=== PATIENT | male | born 1990 | race Native Hawaiian/Other Pacific Islander ===

== ENCOUNTER 2025-03-26 01:08 | Emergency (ER) | payer BC, SELFPAY ==
--- OUTSIDE RECORDS SUMMARY | 2025-02-14 15:41 | XMS_ITS | Encounter Summary ---
Author Organization [facility] Address [address] [place] [address] Care Team Providers Care Client Business Manager Name Role Phone Elsewhere, Pcp Primary Care Provider Unavailabl e Reason for Visit * Reason Comments Blood in Urine Pt has had two days of blood in urine. The blood has lessoned but he has lower belly and lower back pain. Hx of dm2, states he has been riding in the 400s for a few days. Encounter Details Date Type Department Care Team (Late st Contact Info) Description 02/14/2025 3:41 PM CDT - 02/14/2025 4:37 PM CDT Emergency [facility] [address] [place] [address] Procedure And Treatment Not Carried Out Due To Patient Leaving Prior To Being Seen By Health Care Provider (Primary Dx) Discharge Disposition: Left Against Medical Advice or Discontinued Care Social History Tobacco Use Types Packs/Day Years Used Date Smoking Tobacco: Some Days Cigarettes Smokeless Tobacco: Never Alcohol Use Standard Drinks/Week Comments Yes 14 (1 standard drink = 0.6 oz pu re alcohol) Sex and Gender Information Value Date Recorded Sex Assigned at Not on file Legal Sex Male 4:28 AM [employer] Gender Identity Not on file Sexual Orientation Not on file documented as of this encounter Last Filed Vital Signs Vital Sign Reading Time Taken Comments Blood Pressure 147/87 02/14/2025 2:46 PM CDT Pulse 103 02/14/2025 2:46 PM CDT Temperature 36.6 C (97.9 F) 02/14/2025 2:46 PM CDT Respiratory Rate 18 02/14/2025 2:46 PM CDT Oxygen Saturation 98% 02/14/2025 2:46 PM CDT Inhaled Oxygen Concentration - - Weight 87 kg (191 lb 12.8 oz) 02/14/2025 2:45 PM CDT Height - - Body Mass Index 27.77 01/19/2025 1:10 AM CDT documented in this encounter Medications at Time of Discharge insulin aspart U-100 (NovoLOG Flexpen U-100 Insulin) 100 unit/mL (3 mL) pen Inject 2 Units under the skin 3 (three) times a day with meals. 09/23/2024 insulin glargine 100 unit/mL (3 mL) pen Inject 44 Units under the skin at bedtime. 12/02/2024 documented as of this encounter Plan of Treatment Not on file documented as of this encounter Procedures Procedure Name Priority Date/Time Associated Diagnosis Comments GLUCOSE POCT, B Routine 02/14/2025 2:54 PM CDT URINALYSIS WITH MICROSCOPIC IF INDICATED, U STAT 02/14/2025 2:52 PM CDT HC URINALYSIS AUTO WO MICRO STAT 02/14/2025 2:52 PM CDT documented in this encounter Results * (ABNORMAL) Glucose, POCT (02/14/2025 2:54 PM CDT) [facility] Glucose, POCT, B >500(H) 70 - 140 mg/dL 02/14/2025 2:54 PM CDT [facility] Blood 02/14/2025 2:54 PM CDT 02/14/2025 3:02 PM CDT us Generic [facility] LAB POCT ORDERABLES-MANUAL Final Result [facility] [address] [place] [address], [place] TO [facility] [place] [address] [place] [address] * (ABNORMAL) Microscopic Automated (02/14/2025 2:52 PM CDT) Pathologist [facility] White Blood Cells >100(A) /hpf 02/14/2025 3:17 PM CDT [facility] Comment: ----REFERENCE VALUE---- Males: 0-3 Females: 0-10 Unknown: 0-10 Red Blood Cells 21-30(A) 0 - 2 /hpf 3:17 PM CDT [facility] Dysmorphic Red Blood Cells <=25 <=25 % 02/14/2025 3:17 PM CDT [facility] Hyaline Casts 1-3 /lpf 02/14/2025 3:17 PM CDT [facility] Bacteria Present(A) None Seen 02/14/2025 3:17 PM CDT [facility] Urine 02/14/2025 2:52 PM CDT 02/14/2025 2:54 PM CDT Duke Cho M.D. LAB URINE ORDERABLES Final Result [facility] [address] [place] [address], [facility] [address] * (ABNORMAL) Urinalysis with Microscopic if Indicated: Urine, Midstream (02/14/2025 2:52 PM CDT) Pathologist [facility] Source Urine, Urine, Midstream 02/14/2025 3:03 PM CDT [facility] Clarity Clear Clear 02/14/2025 3:03 PM CDT [facility] Color Yellow 02/14/2025 3:03 PM CDT [facility] Comment: ----REFERENCE VALUE---- Colorless Yellow Anel Blood Moderate(A) Negative 02/14/2025 3:03 PM CDT [facility] Nitrite Negative Negative 02/14/2025 3:03 PM CDT [facility] Leukocyte Esterase Small(A) Negative 02/14/2025 3:03 PM CDT [facility] Protein Negative mg/dL 02/14/2025 3:03 PM CDT [facility] Comment: ----REFERENCE VALUE---- Negative Trace Glucose >=1000(A) Negative mg/dL 02/14/2025 3:03 PM CDT [facility] Ketone 15(A) Negative mg/dL 02/14/2025 3:03 PM CDT [facility] Bilirubin Negative Negative 02/14/2025 3:03 PM CDT [facility] pH 5.5 5.0 - 8.0 02/14/2025 3:03 PM CDT [facility] Specific [place] >1.035(A) 1.001 - 1.035 02/14/2025 3:03 PM CDT [facility] Urobilinogen 0.2 0.2 - 1.0 mg/dL 02/14/2025 3:03 PM CDT [facility] Urine (Urine, Midstream) 02/14/2025 2:52 PM CDT 02/14/2025 2:54 PM CDT us Duke Cho M.D. LAB URINE ORDERABLES Final Result [facility] [place] [address], [facility] MKTO [facility] [place] [address] [place] [address] documented in this encounter Visit Diagnoses Diagnosis Procedure And Treatment Not Carried Out Due To Patient Leaving Prior To Being Seen By Health Care Provider- Primary documented in this encounter Care Teams Client Business Manager Relationship Specialty Start Date End Date Elsewhere, Pcp PCP - General Internal Medicine 02/14/25 documented as of this encounter
--- OUTSIDE RECORDS SUMMARY | 2025-02-15 12:51 | XMS_ITS | Encounter Summary ---
Author Organization [facility] Address [address] [place] [address] Care Team Providers Care Steam Distribution Supervisor Name Role Phone Elsewhere, Pcp Primary Care Provider Unavailabl e Reason for Visit * Reason Comments Urinary Problem Blood in urine and p ain with urination for the past few days, hasn't used insulin in over 5 days (type 2 diabetic) BS over 500 yesterday in ER, [facility] Hyperglycemia Encounter Details Date Type Department Care Team (Late st Contact Info) Description 02/15/2025 12:51 PM CDT - 02/15/2025 4:13 PM CDT Emergency [facility] Emergency Department [address] [place] [address] Jeremías Ledezma D.O. 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 - 02/15/2025 3:42 PM CDT Urinary tract infections (UTIs) happen when bacteria get into the urethra (the tube that carries urine from the bladder to It is important to take the full course of antibiotics to completely eliminate the infection. Keep a close eye on your blood sugars tonight take your insulin as instructed. Follow-up with your doctor as instructed or return to ED sooner if symptoms persist or worsen or any new concerns- especially if symptoms persist for more than two or three days after starting treatment , symptoms worsen, any fevers, flank/side pain or vomiting. * Attachments The following attachments cannot be sent through Care Everywhere. * Urinary Tract Infection Male (Greek) documented in this encounter Medications at Time of Discharge insulin aspart U-100 (NovoLOG Flexpen U-100 Insulin) 100 unit/mL (3 mL) pen Inject 2 Units under the skin 3 (three) times a day with meals. 09/23/2024 insulin glargine 100 unit/mL (3 mL) pen Inject 44 Units under the skin at bedtime. 12/02/2024 cephalexin (Keflex) 500 mg capsuleIndication s:Urinary Tract Infection Site Not Specified Take 1 capsule (500 mg total) by mouth every 12 (twelve) hours for 5 days. 10 capsule 02/15/2025 02/20/2025 documented as of this encounter ED Notes * Jeremías Ledezma D.O. - 02/15/2025 1:01 PM CDT SUBJECTIVE CHIEF COMPLAINT/REASON FOR VISIT Urinary Problem (Blood in urine and pain with urination for the past few days, hasn't used insulin in over 5 days (type 2 diabetic) BS over 500 yesterday in ER, [facility]) and Hyperglycemia HISTORY OF PRESENT ILLNESS Pt is 35 yo male with h/o T2DM who presents with who presents with hematuria and hyperglycemia. Pt reports over the past few days he has had hematuria with blood clots in his urine. Pt reports some associated abdominal pain. Pt reports his blood sugar has been high as well and states he has been out of insulin for several days. Pt reports nausea as well. Denies any fever, flank pain, vomiting, h/o similar symptoms. 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 HENT: Negative for congestion. Respiratory: Negative for cough. Gastrointestinal: Positive for abdominal pain and nausea. Negative for diarrhea and vomiting. Genitourinary: Positive for hematuria. Negative for flank pain. Musculoskeletal: Negative for back pain. Skin: Negative for wound. Neurological: Negative for weakness and headaches. All other systems reviewed and are negative. OBJECTIVE Initial Vitals [02/15/25 1250] Temperature 36.6 ??C Pulse Rate 94 Heart Rate Resp Rate 16 Blood Pressure (!) 143/95 SpO2 98 % Pain Score 5 - Moderate pain PHYSICAL EXAMINATION Constitutional: Nursing note and vitals reviewed. No distress. HENT: Head: Normocephalic and atraumatic. Nose: Nose normal. No nasal discharge. Mouth/Throat: Mucous membranes are moist. Eyes: Conjunctivae and EOM are normal. Pupils are equal, round, and reactive to light. Neck: Neck supple. Cardiovascular: Normal rate and regular rhythm. Exam reveals no gallop and no friction rub. Pulmonary/Chest: Effort normal. There is normal air entry. No tachypnea. No respiratory distress. He has no wheezes. He has no rhonchi. He has no rales. Abdominal: Soft. exhibits no distension. There is no rebound and no guarding. Suprapubic and lower abdominal tenderness palpation without rebound or guarding Musculoskeletal: General: Normal range of motion. Cervical back: Normal range of motion and neck supple. Neurological: Alert. He is not disoriented. He exhibits normal muscle tone. Skin: Skin is warm and dry. He is not diaphoretic. Psychiatric: He has a normal mood and affect. Behavior is normal. ASSESSMENT/PLAN Assessment and Plan Pt is 35 yo male with h/o T2DM who presents with who presents with hematuria and hyperglycemia. SeeHPI for details. Pt afebrile, VSS on arrival to ED On exam, pt well appearing, in NAD, suprapubic and lower abdominal tenderness to palpation Labs resulted with hyperglycemia, AG 19, bicarb WNL, betahydroxy 2, though no acidosis (actually alkalotic), UA positive for urinary tract infection CT resulted consistent with cystitis IV fluids and Rocephin given. On reassessment, pt reports he is feeling better and wants to go home, blood sugars improved to 270. Discussed further observation given hyperglycemia, uti though pt anxious to leave. Pt reports he has refill of his insulin at the pharmacy and will take at home. Pt also reports he will keep an eye on his blood sugar tonight as well. Discussed plan for discharge on course of antibiotics, supportive care instructions and strict return precautions given including any worsening hyperglycemia, vomiting, fevers or flank pain. Patient expressed understanding and agreed with plan will follow-up return the ED if any concerns. . DIFFERENTIAL DIAGNOSES Includes but not limited to: uti, kidney stone, hemorrhagic cystitis, pyelo, hyperglycemia, dka, hhs, electrolyte abnormality. Final Diagnoses: as of 02/15/25 1556 Urinary Tract Infection Site Not Specified Hyperglycemia Jeremías Ledezma D.O. 02/15/25 1601 documented in this encounter Plan of Treatment Not on file documented as of this encounter Procedures Procedure Name Priority Date/Time Associated Diagnosis Comments GLUCOSE POCT, B Routine 02/15/2025 3:[address] ABDOMEN PELVIS WITH IV CONTRAST RAD - Semiurgent (Fast; most ED patients; some inpatients) 02/15/2025 2:07 PM CDT URINALYSIS WITH MICROSCOPIC IF INDICATED, U STAT 02/15/2025 1:56 PM CDT HC URINALYSIS AUTO WO MICRO STAT 02/15/2025 1:56 PM CDT CHLAMYDIA/GONORRHO EAE AMPLIFIED RNA STAT 02/15/2025 1:56 PM CDT BETA-HYDOXYBUTYRAT E, POCT, B STAT 02/15/2025 1:11 PM CDT ETHANOL, S STAT 02/15/2025 1:11 PM CDT VENOUS BLOOD GAS W/O COOX STAT 02/15/2025 1:11 PM CDT CBC WITH DIFFERENTIAL, B STAT 02/15/2025 1:11 PM CDT BASIC METABOLIC PANEL, S/P STAT 02/15/2025 1:11 PM CDT GLUCOSE POCT, B Routine 02/15/2025 12:56 PM CDT documented in this encounter Results * (ABNORMAL) Glucose, POCT (02/15/2025 3:24 PM CDT) Glucose, POCT, B 274(H) 70 - 140 mg/dL 02/15/2025 3:24 PM CDT [facility] Blood 02/15/2025 3:24 PM CDT 02/15/2025 3:37 PM CDT us Generic Rals LAB POCT ORDERABLES-MANUAL Final Result [facility] [address] [place] [address], [facility] MKTO [facility] [place] [address] [place] [id number] * CT Abdomen Pelvis with IV Contrast (02/15/2025 2:07 PM CDT) Anatomical Region Laterality Modality Abdomen, Pelvis, Abdominal R ST LOS, Abdominal ARZ LOS, Abdominal FLA LOS N/A Computed Tomography 02/15/2025 2:08 PM CDT Impressions 02/15/2025 2:22 PM CDT 1. Thick-walled, nondistended bladder. Correlate with urinalysis. 2. No additional CT abnormality identified. Narrative 02/15/2025 2:22 PM CDT EXAM: CT ABDOMEN PELVIS WITH IV CONTRAST COMPARISON: None FINDINGS: Visualized lung bases are clear. No pleural effusion. Gallbladder is present. No calcified gallstones or biliary ductal dilatation. Liver, spleen, pancreas, adrenal glands, kidneys without acute or focal CT abnormality. Abdominal aorta normal diameter. No retroperitoneal lymphadenopathy. Portal and mesenteric veins are patent. No upper abdominal or mesenteric lymphadenopathy. Thick-walled bladder without distention. Correlate with urinalysis. Prostate not enlarged. No pelvic or inguinal lymphadenopathy. No bowel obstruction, free air, free fluid. Bilateral L5 pars defects. No acute osseous abnormality. Procedure Note Saurav Gomez M.D. - 02/15/2025 EXAM: CT ABDOMEN PELVIS WITH IV CONTRAST COMPARISON: None FINDINGS: Visualized lung bases are clear. No pleural effusion. Gallbladder is present. No calcified gallstones or biliary ductaldilatation. Liver, spleen, pancreas, adrenal glands, kidneys without acuteor focal CT abnormality. Abdominal aorta normal diameter. No retroperitoneal lymphadenopathy. Portal and mesenteric veins are patent. No upper abdominal or mesentericlymphadenopathy. Thick-walled bladder without distention. Correlate with urinalysis. Prostate not enlarged. No pelvic or inguinal lymphadenopathy. No bowel obstruction, free air, free fluid. Bilateral L5 pars defects. No acute osseous abnormality. IMPRESSION: 1. Thick-walled, nondistended bladder. Correlate with urinalysis. 2. No additional CT abnormality identified. Jeremías Ledezma D.O. IMDemetrice CT PROCEDURES Final Resu lt * (ABNORMAL) Microscopic Automated (02/15/2025 1:56 PM CDT) White Blood Cells >100(A) /hpf 02/15/2025 2:13 PM CDT MKTO Comment: ----REFERENCE VALUE---- Males: 0-3 Females: 0-10 Unknown: 0-10 Red Blood Cells 21-30(A) 0 - 2 /hpf 2:13 PM CDT MKTO Dysmorphic Red Blood Cells <=25 <=25 % 02/15/2025 2:13 PM CDT MKTO Hyaline Casts 1-3 /lpf 02/15/2025 2:13 PM CDT MKTO Bacteria Present(A) None Seen 02/15/2025 2:13 PM CDT MKTO Urine 02/15/2025 1:56 PM CDT 02/15/2025 2:02 PM CDT Jose Marroquin P.A.-C. M.S. LAB URINE ORDERABLES Final Result Performing Organization Address City/[facility]/ZIP Co de Phone Number [facility] [address] [place] [address], [place] [address] * Chlamydia / Gonorrhoeae Amplified RNA (02/15/2025 1:56 PM CDT) Source Urine, Urine, First Voided 02/15/2025 8:35 PM CDT MKTO Chlamydia trachomatis amplified RNA Negative Negative 02/15/2025 8:35 PM CDT MKTO Source Urine, Urine, First Voided 02/15/2025 8:35 PM CDT MKTO Neisseria gonorrhoeae amplified RNA Negative Negative 02/15/2025 8:35 PM CDT MKTO Urine (Urine, First Voided) 02/15/2025 1:56 PM CDT 02/15/2025 2:02 PM CDT Jose Marroquin P.A.-C., M.S. LAB MICROBIOLOGY - G ENERAL ORDERABLES Final Result Performing Organization Address [facility]/ZIP Co de Phone Number [facility] [address] [place] [phone], [facility] MKTO [address] [place] [phone] * (ABNORMAL) Urinalysis with Microscopic if Indicated: Urine, Midstream (02/15/2025 1:56 PM CDT) Source Urine, Urine, Midstream 02/15/2025 2:08 PM CDT MKTO Clarity Clear Clear 02/15/2025 2:08 PM CDT MKTO Color Yellow 02/15/2025 2:08 PM CDT MKTO Comment: ----REFERENCE VALUE---- Colorless Yellow Anel Blood Moderate(A) Negative 02/15/2025 2:08 PM CDT MKTO Nitrite Positive(A) Negative 02/15/2025 2:08 PM CDT MKTO Leukocyte Esterase Trace(A) Negative 02/15/2025 2:08 PM CDT MKTO Protein 100(A) mg/dL 02/15/2025 2:08 PM CDT MKTO Comment: ----REFERENCE VALUE---- Negative Trace Glucose >=1000(A) Negative mg/dL 02/15/2025 2:08 PM CDT MKTO Ketone >=150(A) Negative mg/dL 02/15/2025 2:08 PM CDT MKTO Bilirubin Negative Negative 02/15/2025 2:08 PM CDT MKTO pH 5.5 5.0 - 8.0 02/15/2025 2:08 PM CDT MKTO Specific [place] >1.035(A) 1.001 - 1.035 02/15/2025 2:08 PM CDT MKTO Urobilinogen 1.0 0.2 - 1.0 mg/dL 02/15/2025 2:08 PM CDT MKTO Urine (Urine, Midstream) 02/15/2025 1:56 PM CDT 02/15/2025 2:02 PM CDT Jose Marroquin P.A.-C., M.S. LAB URINE ORDERABLES Final Result [facility] [address] [place] [address], [facility] MKTO [facility] in [address] [address] * Ethanol Level, Serum (02/15/2025 1:11 PM CDT) Ethanol, P <10 <10 mg/dL 02/15/2025 1:3 9 PM CDT MKTO Blood (Blood, Venous) 02/15/2025 1:11 PM CDT 02/15/2025 1:17 PM CDT us Jose Marroquin P.A.-C., M.S. LAB BLOOD NON ADD-ON Final Result Performing Organization Address [facility] Co de Phone Number [facility] [address] [place] [address], [address] [address] * (ABNORMAL) Beta-hydroxybutyrate, Point of Care Testing, Blood (02/15/2025 1:11 PM CDT) Beta-hydroxybut yrate, POCT, B 2.0(H) 0.0 - 0.5 mmol/L 02/15/2025 1:19 PM CDT MKTO Blood (Blood, Venous) 02/15/2025 1:11 PM CDT 02/15/2025 1:17 PM CDT Jose Marroquin P.A.-C., M.S. LAB BLOOD NON ADD-ON Final Result Performing Organization Address [facility] Co de Phone Number [facility] [address] [place] [phone], [facility] [address] [place] [phone] * (ABNORMAL) Blood Gas without Coox, Venous (02/15/2025 1:11 PM CDT) pO2, Venous 66 Not applicable mm Hg 02/15/2025 1:26 PM CDT MKTO pCO2, Venous 41 41 - 51 mm Hg 1:26 PM CDT MKTO pH, Venous 7.44(H) 7.32 - 7.43 pH 02/15/2025 1:26 PM CDT MKTO Base Excess, Venous 3 Not applicable mmol/L 02/15/2025 1:26 PM CDT MKTO HCO3, Venous 27 Not applicable mmol/L 02/15/2025 1:26 PM CDT MKTO Blood (Blood, Venous) 02/15/2025 1:11 PM CDT 02/15/2025 1:17 PM CDT Jose Marroquin P.A.-C. M.S. LAB BLOOD NON ADD-ON Final Result [facility] [address] [place] [address], [facility] MKTO [facility] [place] [address] [place] [address] * (ABNORMAL) Basic Metabolic Panel (02/15/2025 1:11 PM CDT) Potassium, P 4.3 3.6 - 5.2 mmol/L 02/15/2025 1:39 PM CDT MKTO Sodium, P 136 135 - 145 mmol/L 02/15/2025 1:39 PM CDT MKTO Chloride, P 94(L) 98 - 107 mmol/L 02/15/2025 1:39 PM CDT MKTO Bicarbonate, P 23 22 - 29 mmol/L 02/15/2025 1:39 PM CDT MKTO Anion Gap, P 19(H) 7 - 15 02/15/2025 1:39 PM CDT MKTO BUN (Blood Urea Nitrogen), P 13 8 - 24 mg/dL 02/15/2025 1:39 PM CDT MKTO Creatinine 0.80 0.74 - 1.35 mg/dL 02/15/2025 1:39 PM CDT MKTO Estimated GFR (eGFR) >90 >=60 mL/min/BSA 02/15/2025 1:39 PM CDT MKTO Comment: Estimated GFR calculated using the 2020 CKD_EPI creatinine equation. Calcium, Total, P 9.2 8.6 - 10.0 mg/dL 02/15/2025 1:39 PM CDT MKTO Glucose, P 354(H) 70 - 140 mg/dL 02/15/2025 1:39 PM CDT MKTO Blood (Blood, Venous) 02/15/2025 1:11 PM CDT 02/15/2025 1:17 PM CDT us Jose Marroquin P.A.-C. MCeceliaS. LAB BLOOD ADD-ON Fin al Result [facility] [address] [place] [address], [facility] MKTO [facility] [place] [address] [place] [address] * (ABNORMAL) CBC with Differential, Blood (02/15/2025 1:11 PM CDT) Hemoglobin 16.8(H) 13.2 - 16.6 g/dL 02/15/2025 3:20 PM CDT MKTO Hematocrit 46.0 38.3 - 48.6 % 02/15/2025 3:20 PM CDT MKTO Erythrocytes 5.00 4.35 - 5.65 x10(12)/L 02/15/2025 3:20 PM CDT MKTO MCV 92.0 78.2 - 97.9 fL 02/15/2025 3:20 PM CDT MKTO RBC Distrib Width 11.0(L) 11.8 - 14.5 % 02/15/2025 3:20 PM CDT MKTO Platelet Count 220 135 - 317 x10(9)/L 02/15/2025 3:20 PM CDT MKTO Leukocytes 8.9 3.4 - 9.6 x10(9)/L 02/15/2025 3:20 PM CDT MKTO Neutrophils 6.51(H) 1.56 - 6.45 x10(9)/L 02/15/2025 3:20 PM CDT MKTO Lymphocytes 1.57 0.95 - 3.07 x10(9)/L 02/15/2025 3:20 PM CDT MKTO Monocytes 0.64 0.26 - 0.81 x10(9)/L 02/15/2025 3:20 PM CDT MKTO Eosinophils 0.12 0.03 - 0.48 x10(9)/L 02/15/2025 3:20 PM CDT MKTO Basophils 0.06 0.01 - 0.08 x10(9)/L 02/15/2025 3:20 PM CDT MKTO Blood (Blood, Venous) 02/15/2025 1:11 PM CDT 02/15/2025 3:17 PM CDT us Jose Marroquin P.A.-C., M.S. LAB BLOOD ADD-ON Fin al Result [facility] [address] [place] [address], [place] [address] * (ABNORMAL) Glucose, POCT (02/15/2025 12:56 PM CDT) [facility] Glucose, POCT, B 405(H) 70 - 140 mg/dL 02/15/2025 12:56 PM CDT MKTO Blood 02/15/2025 12:5 6 PM CDT 02/15/2025 1:03 PM CDT us Generic Rals LAB POCT ORDERABLES-MANUAL Final Result Performing Organization Address [facility]/ZIP Co de Phone Number [facility] [address] [place] [address], [place] [address] documented in this encounter Visit Diagnoses Diagnosis Urinary Tract Infection Site Not Specified- Primary Hyperglycemia documented in this encounter Administered Medications Inactive Administered Medications - up to 3 most recent administrations Medication Order MAR Action Action Date Dose Rate Site cefTRIAXone injection 2 g (Rocephin) 2 g, intravenous, Once, On 02/15/25 at 1439, For 1 dose, If needed, reconstitute vial per package insert instructions. See IVAG for administration guidelines., Drug Monitoring Program: Pharmacist to adjust medication dosing based on indication and drug clearance factors., Indications: Lower UTI, Non-CatheterIndications:Lower UTI, Non-Catheter Given 02/15/2025 3:25 PM CDT 2 g iohexoL 300 mg iodine/mL solution 1-200 mL (Omnipaque) 1-200 mL, intravenous, Once in imaging, contrast, Starting on 02/15/25 at 1352, For 1 dose Given 02/15/2025 2:07 PM CDT 140 mL NaCl 0.9 % bolus 1,000 mL 1,000 mL, intravenous, at 1,000 mL/hr, Administer over 1 Hours, Once, On 02/15/25 at 1315, For 1 dose New Bag 02/15/2025 1:05 PM CDT 1,000 mL 1000 mL/hr sodium chloride 0.9 % flush 100 mL 100 mL, intravenous, Once in imaging, line care, for imaging, Starting on 02/15/25 at 1352, For 1 dose Given 02/15/2025 2:07 PM CDT 100 mL sodium chloride 0.9 % injection 10 mL 10 mL, intravenous, Once in imaging, for imaging, Starting on 02/15/25 at 1352, For 1 dose Given 02/15/2025 2:07 PM CDT 10 mL sodium chloride 0.9 % injection 2-10 mL 2-10 mL, intravenous, As needed, line care, Starting on 02/15/25 at 1253 documented in this encounter Active and Recently Administered Medications Times are shown in CDT. Scheduled Medication Order 02/13/2025 02/14/2025 02/15/2025 cefTRIAXone injection 2 g (Rocephin) (COMPLETED) 2 g, intravenous, Once, On 02/15/25 at 1439, For 1 dose, If needed, reconstitute vial per package insert instructions. See IVAG for administration guidelines., Drug Monitoring Program: Pharmacist to adjust medication dosing based on indication and drug clearance factors., Indications: Lower UTI, Non-Catheter 1525 (Given - Provid er: Elier Ochoa R.N.) NaCl 0.9 % bolus 1,000 mL (COMPLETED) 1,000 mL, intravenous, at 1,000 mL/hr, Administer over 1 Hours, Once, On 02/15/25 at 1315, For 1 dose 1305 (New Bag - Prov ider: Susy Johnston R.N.)1519 (Stopped - Provider: Susy Johnston R.N.) PRN Medication Order 02/13/2025 02/14/2025 02/15/2025 iohexoL 300 mg iodine/mL solution 1-200 mL (Omnipaque) (COMPLETED) 1-200 mL, intravenous, Once in imaging, contrast, Starting on 02/15/25 at 1352, For 1 dose 1407 (Given - Provid er: Tita De La Rosa) sodium chloride 0.9 % flush 100 mL (COMPLETED) 100 mL, intravenous, Once in imaging, line care, for imaging, Starting on 02/15/25 at 1352, For 1 dose 1407 (Given - Provid er: Tita De La Rosa) sodium chloride 0.9 % injection 10 mL (COMPLETED) 10 mL, intravenous, Once in imaging, for imaging, Starting on 02/15/25 at 1352, For 1 dose 1407 (Given - Provid er: Tita De La Rosa) sodium chloride 0.9 % injection 2-10 mL(Linked Group 1) 2-10 mL, intravenous, As needed, line care, Starting on 02/15/25 at 1253 Linked Groups Order Group 1: Place peripheral IV: No upper extremity site restrictions (COMPLETED) Upper extremity site restriction: No upper extremity site restrictions, Quantity of PIVs requested: One, STAT, Once, On 02/15/25 at 1254, For 1 occurrence And sodium chloride 0.9 % injection 2-10 mLJump to med 2-10 mL, intravenous, As needed, line care, Starting on 02/15/25 at 1253 documented in this encounter Care Teams Steam Distribution Supervisor Relationship Specialty Start Date End Date Elsewhere, Pcp PCP - General Internal Medicine 02/14/25 documented as of this encounter
--- OUTSIDE RECORDS SUMMARY | 2025-02-26 20:37 | XMS_ITS | Encounter Summary ---
Author Organization [facility] Address [facility]ly [facility] [place] [address] Care Team Providers Care Supervisor Gluing Name Role Phone No Ref-Primary, Physician Primary Care Provider Angella Rodríguez APRN [employer] Unavailable [phone] Carly Chavira MD Unavailable [phone] Reason for Visit * Reason Comments Dysuria Encounter Details Date Type Department Care Team (Late st Contact Info) Description 02/26/2025 8:37 PM CDT - 02/26/2025 9:14 PM CDT Emergency [facility] Emergency Dept [address] [place] [address] Flaco Raphael, PA-C [facility] [address] [place], [place] [id number] Discharge Disposition: Home or Self Care Social History Tobacco Use Types Packs/Day Years Used Date Smoking Tobacco: Never Smokeless Tobacco: Never Alcohol Use Standard Drinks/Week Comments Yes 0 (1 standard drink = 0.6 oz pur e alcohol) AUDIT-C Answer Date Recorded Q1: How often do you have a drink containing alcohol? 4 or more times a week 12/25/2024 Q2: How many drinks containi ng alcohol do you have on a typical day when you are drinking? 10 or more Q3: How often do you have si x or more drinks on one occasion? Daily or almost daily 12/25/2024 PHQ-2 Answer Date Recorded PHQ-2 Score 0 02/22/2024 Adolescent Education Answer Date Record ed Getting School Help Needed Not on file 03/24 Food Insecurity Answer Date Recorded Within the past 12 months, d id you worry that your food would run out before you got money to buy more? No 12/25/2024 Within the past 12 months, d id the food you bought just not last and you didn t have money to get more? No 12/25/2024 Housing Stability Answer Date Recorded Do you have housing? (Yaneth johnson is defined as stable permanent housing and does not include staying outside in a car, in a tent, in an abandoned building, in an overnight long term, or couch-surfing.) Yes 12/25/2024 Are you worried about losing your housing? No 12/25/2024 Financial Resource Strain Answer Date R ecorded Within the past 12 months, h ave you or your family members you live with been unable to get utilities (heat, electricity) when it was really needed? No 12/25/2024 Transportation Needs Answer Date Record ed Within the past 12 months, h as lack of transportation kept you from medical appointments, getting your medicines, non-medical meetings or appointments, work, or from getting things that you need? No 12/25/2024 Interpersonal Safety Answer Date Record ed Do you feel physically and e motionally safe where you currently live? Yes 12/25/2024 Within the past 12 months, h ave you been hit, slapped, kicked or otherwise physically hurt by someone? No 12/25/2024 Within the past 12 months, h ave you been humiliated or emotionally abused in other ways by your partner or ex-partner? No 12/25/2024 Sex and Gender Information Value Date Recorded Sex Assigned at Not on file Legal Sex Male 2:14 AM CDT Gender Identity Not on file Sexual Orientation Not on file documented as of this encounter Last Filed Vital Signs Vital Sign Reading Time Taken Comments Blood Pressure 147/87 02/26/2025 8:30 PM CDT Pulse 110 02/26/2025 8:30 PM CDT Temperature 36.3 C (97.4 F) 02/26/2025 8:30 PM CDT Respiratory Rate 18 02/26/2025 8:30 PM CDT Oxygen Saturation 98% 02/26/2025 8:30 PM CDT Inhaled Oxygen Concentration - - Weight 86.1 kg (189 lb 13.1 oz) 02/26/2025 8:30 PM CDT Height - - Body Mass Index 26.47 12/25/2024 10:34 PM CDT documented in this encounter Medications at Time of Discharge ACCU-CHEK GUIDE test stripIndications:U ncontrolled type 2 diabetes mellitus with hyperglycemia (H),Type 2 diabetes mellitus with other specified complication, with long-term current use of insulin (H) Use to test blood sugar 5-6 times daily or as directed. 500 strip 3 4 blood glucose monitoring (SOFTCLIX) lancetsIndications :Uncontrolled type 2 diabetes mellitus with hyperglycemia (H),Type 2 diabetes mellitus with other specified complication, with long-term current use of insulin (H) Use to test blood sugar 5-6 times daily or as directed. 500 each 3 4 folic acid (FOLVITE) 1 MG tabletIndications: Alcohol use disorder Take 1 tablet (1 mg) by mouth daily. 30 tablet 1 5 hydrOXYzine HCl (ATARAX) 25 MG tabletIndications: PARISH (generalized anxiety disorder) Take 1 tablet (25 mg) by mouth every 4 hours as needed for anxiety. 60 tablet 1 5 insulin aspart (NOVOLOG PEN) 100 UNIT/ML penIndications:Typ e 2 diabetes mellitus with other specified complication, with long-term current use of insulin (H) Inject 10 Units subcutaneously 3 times daily (with meals). 15 mL 5 insulin aspart (NOVOLOG PEN) 100 UNIT/ML penIndications:Typ e 2 diabetes mellitus with other specified complication, with long-term current use of insulin (H) Correction Scale - custom DOSING Do Not give Correction Insulin if Pre-Meal BG less than 151 For Pre-Meal BG 151 to 200 give 2 units. For Pre-Meal BG 201 to 250 give 4 units. For Pre-Meal BG 251 to 300 give 6 units. For Pre-Meal BG 301 to 350 give 8 units. For Pre-Meal BG 351 to 400 give 10 units. For Pre-Meal BG >400, call on-call medical provider If patient is NOT eating a meal: Blood glucose should still be checked and correction (sliding scale) insulin to be administered within 30 minutes if order parameters are met. If patient is eating a meal: To be given with prandial insulin if ordered, and based on pre-meal blood glucose. Administering insulin within 5 minutes of the start of the meal is ideal. Administer insulin no more than 30 minutes after the start of the meal, unless directed otherwise by provider. 15 mL 5 insulin aspart (NOVOLOG PEN) 100 UNIT/ML penIndications:Typ e 2 diabetes mellitus with other specified complication, with long-term current use of insulin (H) Correction Scale - custom DOSING Do Not give Correction Insulin if Pre-Meal BG less than 151 For Pre-Meal BG 151 to 200 give 2 units. For Pre-Meal BG 201 to 250 give 4 units. For Pre-Meal BG 251 to 300 give 6 units. For Pre-Meal BG 301 to 350 give 8 units. For Pre-Meal BG 351 to 400 give 10 units. For Pre-Meal BG >400, call on-call medical provider 15 mL 5 insulin glargine (LANTUS PEN) 100 UNIT/ML penIndications:Typ e 2 diabetes mellitus with other specified complication, with long-term current use of insulin (H) Inject 44 Units subcutaneously at bedtime. 15 mL 5 insulin pen needle (32G X 4 MM) 32G X 4 MM miscellaneousIndic ations:Uncontrolle d type 2 diabetes mellitus with hyperglycemia (H),Type 2 diabetes mellitus with other specified complication, with long-term current use of insulin (H) Use 5 pen needles daily or as directed. 200 each 1 5 metFORMIN (GLUCOPHAGE) 1000 MG tabletIndications: Uncontrolled type 2 diabetes mellitus with hyperglycemia (H),Type 2 diabetes mellitus with other specified complication, with long-term current use of insulin (H) Take 1 tablet (1,000 mg) by mouth 2 times daily (with meals). 60 tablet 1 5 mirtazapine (REMERON) 15 MG tabletIndications: PARISH (generalized anxiety disorder),Major depressive disorder, recurrent episode, moderate (H) Take 1 tablet (15 mg) by mouth at bedtime. 30 tablet 1 5 multivitamin w/minerals (THERA-VIT-M) tabletIndications: Alcohol use disorder Take 1 tablet by mouth daily. 30 tablet 1 5 naltrexone (DEPADE/REVIA) 50 MG tabletIndications: Alcohol use disorder Take 1 tablet (50 mg) by mouth daily. 30 tablet 1 5 thiamine (B-1) 100 MG tabletIndications: Alcohol use disorder Take 1 tablet (100 mg) by mouth daily. 30 tablet 1 5 ciprofloxacin (CIPRO) 500 MG tablet Take 1 tablet (500 mg) by mouth 2 times daily for 13 doses. 13 tablet 5 03/06/20 25 phenazopyridine (PYRIDIUM) 200 MG tablet Take 1 tablet (200 mg) by mouth 3 times daily as needed for irritation. 9 tablet 5 03/02/20 25 documented as of this encounter ED Notes * Cinthia Xiong RN - 02/26/2025 8:28 PM CDT Patient states that he had a previous UTI, took abx to completion and still having symptoms. Difficulty urinating, discharge and pain. ABCs intact. VSS. documented in this encounter Plan of Treatment Not on file documented as of this encounter Procedures Procedure Name Priority Date/Time Associated Diagnosis Comments ROUTINE UA WITH MICROSCOPIC REFLEX TO CULTURE STAT 02/26/2025 9:04 PM CDT documented in this encounter Results * (ABNORMAL) UA with Microscopic reflex to Culture (02/26/2025 9:04 PM CDT) Color Urine Straw Colorless, Straw, Light Yellow, Yellow 02/26/2025 9:31 PM CDT [facility] Appearance Urine Clear Clear 02/27/20 9:31 PM CDT [facility] Glucose Urine >=1000(A) Negative mg/dL 02/26/2025 9:31 PM CDT [facility] Bilirubin Urine Negative Negative 9:31 PM CDT [facility] Ketones Urine Negative Negative mg/dL 02/26/2025 9:31 PM CDT [facility] Specific [place] Urine 1.020 1.003 - 1.035 JESSICA 02/26/2025 9:31 PM CDT [facility] Blood Urine Negative Negative 02/26/2025 9:31 PM CDT [facility] pH Urine 5.5 5.0 - 7.0 02/26/2025 9:31 PM CDT [facility] Protein Albumin Urine Negative Negative mg/dL 02/26/2025 9:31 PM CDT [facility] Urobilinogen Urine Normal Normal mg/dL 02/26/2025 9:31 PM CDT [facility] Nitrite Urine Negative Negative 02/26/2025 9:31 PM CDT [facility] Leukocyte Esterase Urine Negative Negative 02/26/2025 9:31 PM CDT [facility] Bacteria Urine Few(A) None Seen /HPF 02/26/2025 9:31 PM CDT [facility] RBC Urine 1 <=2 /HPF 02/26/2025 9:31 PM CDT [facility] WBC Urine 8(H) <=5 /HPF 02/26/2025 9:31 PM CDT [facility] Squamous Epithelials Urine <1 <=1 /HPF 02/26/2025 9:31 PM CDT [facility] Urine MID-STREAM URINE SPECIMEN / Unknown Non-blood Collection / Unknown 02/26/2025 9:04 PM CDT 02/26/2025 9:14 PM CDT Narrative [facility] - 02/26/2025 9:31 PM CDT Urine Culture not indicated us Flaco Raphael PA-C LAB - URINE ORDERABLES Final Result LABORATORY [facility] [address] (1st floor, no room number) [place] [address] documented in this encounter Visit Diagnoses Not on filedocumented in this encounter Additional Health Concerns Assessment Noted Time PHQ-9 Depression Total Score: 0 02/22/20 24 11:02 AM CDT documented as of this encounter Care Teams Supervisor Gluing Relationship Specialty Start Date End Date No Ref-Primary, Physician PCP - General 02/21/24 Angella Rodríguez APRN [employer] [employer] [address] [place] [address] Assigned PCP 03/25/24 Carly Chavira MD [address] [place] [address] [address] [place] [address] Endocrinology, Diabetes, and Metabolism 01/14/25 documented as of this encounter
--- OUTSIDE RECORDS SUMMARY | 2025-02-27 00:13 | XMS_ITS | Encounter Summary ---
Author Organization Deputy Address [facility] [place] [address] Care Team Providers Care Outside Sales Representative Name Role Phone No Ref-Primary, Physician Primary Care Provider Angella Rodríguez APRN MOTOR BUILDER ASSEMBLER Unavailable [phone] Carly Chavira MD Unavailable [phone] Reason for Visit * Reason Comments Urinary Frequency Encounter Details Date Type Department Care Team (Late st Contact Info) Description 02/27/2025 12:13 AM CDT - 02/27/2025 1:55 AM CDT Emergency [facility] Emergency Dept [address] [place] [address] Javon Vázquez MD [facility] [address] [place], [place] [id number] Acute cystitis without hematuria (Primary Dx) Discharge Disposition: Home or Self Care Social [...] Date Recorded Do you have housing? (Yaneth g is defined as stable permanent housing and does not include staying outside in a car, in a tent, in an abandoned building, in an overnight halfway, or couch-surfing.) Yes 12/25/2024 Are you worried [...] Sign Reading Time Taken Comments Blood Pressure 142/92 02/26/2025 11:51 PM CDT Pulse 100 02/26/2025 11:51 PM CDT Temperature 36.7 C (98 F) 02/26/2025 11:51 PM CDT Respiratory Rate 20 02/26/2025 11:5 1 PM CDT Oxygen Saturation 99% 02/26/2025 11: 51 PM CDT Inhaled Oxygen Concentration - - Weight 87.5 kg (192 lb 14.4 oz) 025 11:51 PM CDT Height 180.3 cm (5' 11) 02/26/2025 11: 51 PM CDT Body Mass Index 26.9 02/26/2025 11:51 PM CDT documented in this encounter Discharge Instructions * Discharge Instructions* Javon Vázquez MD - 02/27/2025 1:45 AM CDT Discharge Instructions Urinary Tract Infection You or your child have been diagnosed with a urinary tract infection, or UTI. The urinary tract includes the kidneys (which make urine/pee), ureters (the tubes that carry urine/pee from the kidneys to the bladder), the bladder (which stores urine/pee), and urethra (the tube that carries urine/pee out of the bladder). Urinary tract infections occur when bacteria travel up the urethra into the bladder (bladder infection) and, in some cases, from there into the kidneys (kidney infection). Generally, every Emergency Department visit should have a follow-up clinic visit with either a primary or a specialty clinic/provider. Please follow-up as instructed by your emergency provider today. Return to the Emergency Department if: You or your child have severe back pain. You or your child are vomiting (throwing up) so that you cannot take your medicine. You or your child have a new fever (had not previously had a fever) over 101??F. You or your child have confusion or are very weak, or feel very ill. Your child seems much more ill, will not wake up, will not respond right, or is crying for a long time and will not calm down. You or your child are showing signs of dehydration. These signs may include decreased urination (pee), dry mouth/gums/tongue, or decreased activity. Follow-up with your provider: Children under 24 months need to be seen by their regular provider within one week after a diagnosis of a UTI. It may be necessary to do some more tests to look at the child???s kidney or bladder. You should begin to feel better within 24 - 48 hours of starting your antibiotic; follow-up with your regular clinic/doctor/provider if this is not the case. Treatment: You will be treated with an antibiotic to kill the bacteria. We have to make an educated guess, based on what we know about common bacteria and antibiotics, as to which antibiotic will work for your infection. We will be correct most times but there will be some cases where the antibiotic chosen isnot correct (see urine cultures below). Take a pain medication such as acetaminophen (Tylenol??) or ibuprofen (Advil??, Motrin??, Nuprin??). Phenazopyridine (Pyridium??, Uristat??) is a prescription medication that numbs the bladder to reduce the burning pain of some UTIs. The same medication is available in a non-prescription version (Azo-Standard??, Urodol??). This medication will change the color of the urine and tears (usually blue or orange). If you wear contacts, do not wear them while taking this medication as they may be stained by the medication. Urine Cultures: If indicated, a urine culture may have been performed today. This test generally takes 24-48 hours to complete so the results are not known at this time. The results can confirm that an infection is present but also determine which antibiotic is effective for the specific bacteria that is causing the infection. If your urine culture shows that the antibiotic you were given today will not work to treat your infection, we will attempt to contact you to make arrangements to change the antibiotic. If the culture confirms that the antibiotic is effective for your infection, you will not be contacted. We often recommend follow-up with your regular physician/provider on the culture results regardless of this process. Antibiotic Warning: If you have been placed on antibiotics - watch for signs of allergic reaction. These include rash, lip swelling, difficulty breathing, wheezing, and dizziness. If you develop any of these symptoms, stop the antibiotic immediately and go to an emergency room or urgent care for evaluation. Probiotics: If you have been given an antibiotic, you may want to also take a probiotic pill or eatyogurt with live cultures. Probiotics have good bacteria to help your intestines stay healthy. Studies have shown that probiotics help prevent diarrhea and other intestine problems (including C. diff infection) when you take antibiotics. You can buy these without a prescription in the pharmacy section of the store. If you were given a prescription for medicine here today, be sure to read all of the information (including the package insert) that comes with your prescription. This will include important information about the medicine, its side effects, and any warnings that you need to know about. The pharmacist who fills the prescription can provide more information and answer questions you may have about the medicine. If you have questions or concerns that the pharmacist cannot address, please call or return to the Emergency Department. Remember that you can always come back to the Emergency Department if you are not able to see your regular provider in the amount of time listed above, if you get any new symptoms, or if there is anything that worries you. * Attachments The following attachments cannot be sent through Care Everywhere. * UTI (Urinary Tract Infection): Male (Kyrgyz) documented in this encounter Medications at Time [...] for 13 doses. 13 tablet 5 03/06/20 phenazopyridine (PYRIDIUM) 200 MG tablet Take 1 tablet (200 mg) by mouth 3 times daily as needed for irritation. 9 tablet 5 03/02/20 25 documented as of this encounter ED Notes * Javon Vázquez MD - 02/27/2025 12:55 AM CDT Emergency Department Note History of Present Illness Chief Complaint Urinary Frequency HPI Rocky Gardiner is a 35 year old male with a history as noted below who presents to the emergency department for urinary frequency. The patient states that on 02/15/25, he was evaluated for hematuria in which he was diagnosed with a UTI and started on Keflex, noting that he finished this course of Keflex but reports that for the past few days, he has been experiencing persistent hematuria,urge to urinate, and urinary frequency as well as some nausea and a nonradiating left flank pain. No vomiting. No fever or chills. No changes to stool. No hx of kidney stones. He has a hx of type 2 diabetes. Patient notes that he smokes and drinks alcohol and adds that he uses meth. Independent Historian None Review of External Notes Reviewed [place] ED note from 02/15/25, diagnosed with UTI and started on Keflex. Past Medical History Medical History and Problem List Alcohol abuse Hyperlipidemia Hyperglycemia Insomnia Type 2 diabetes Substance abuse DKA Medications hydrOXYzine HCl (ATARAX) 25 MG tablet insulin aspart (NOVOLOG PEN) 100 UNIT/ML pen insulin glargine (LANTUS PEN) 100 UNIT/ML pen metFORMIN (GLUCOPHAGE) 1000 MG tablet mirtazapine (REMERON) 15 MG tablet naltrexone (DEPADE/REVIA) 50 MG tablet Physical Exam Patient Vitals for the past 24 hrs: BP Temp Temp src Pulse Resp SpO2 Height Weight 02/26/25 2351 (!) 142/92 98 ??F (36.7 ??C) Temporal 100 20 99 % 1.803 m (5' 11) 87.5 kg (192 lb 14.4 oz) Physical Exam Constitutional: Well developed, nontox appearance Head: Atraumatic. Neck: no stridor Eyes: no scleral icterus Cardiovascular: Borderline regular tachycardia, 2+ bilat radial pulses Pulmonary/Chest: nml resp effort Abdominal: ND, soft, NT, no rebound or guarding : no CVA tenderness bilat Ext: Warm, well perfused, no edema Neurological: A&O, symmetric facies, moves ext x4 Skin: Skin is warm and dry. Psychiatric: Behavior is normal. Thought content normal. Nursing note and vitals reviewed. Diagnostics Lab Results Labs Ordered and Resulted from Time of ED Arrival to Time of ED Departure - No data to display Imaging CT Abdomen Pelvis w/o Contrast Final Result IMPRESSION: 1. Negative noncontrast abdomen and pelvis CT. No findings to explain the patient's symptoms. Specifically, no urinary calculi or hydronephrosis. Independent Interpretation None ED Course Medications Administered Medications ciprofloxacin (CIPRO) tablet 500 mg (500 mg Oral $Given 02/27/25 0151) Discussion of Management None ED Course ED Course as of 02/27/25 0436 Fela Feb 27, 2025 0104 I obtained history and examined the patient as noted above. 0143 I rechecked the patient. I discussed findings and discharge with the patient. All questions answered. Additional Documentation Social Determinants of Health: Drug and alcohol use Medical Decision Making / Diagnosis [facility] Diagnoses: None MIPS None [facility] Rocky Edgardo Gardiner is a 35 year old male presenting with urinary symptoms, recent diagnosis of UTI Patient's urinalysis is weakly positive given persistent WBCs. Given his symptoms have persisted, CT abdomen pelvis ordered for further evaluation of ongoing symptoms which returned unremarkable. I think be reasonable to change the patient's antibiotics he was given a first dose of ciprofloxacin department. I feel the patient is safe for discharge. Prescriptions provided as noted below. Doubt bacteremia, sepsis, severe sepsis, pyelonephritis. Patient counseled on results, diagnosis and disposition. He is understanding and agreeable to plan. Patient was subsequently discharged in stable condition Disposition The patient was discharged. Diagnosis ICD-10-CM 1. Acute cystitis without hematuria N30.00 Discharge Medications Discharge Medication List as of 02/27/2025 1:49 AM START taking these medications Details ciprofloxacin (CIPRO) 500 MG tablet Take 1 tablet (500 mg) by mouth 2 times daily for 13 doses., Disp-13 tablet, R-0, E-Prescribe phenazopyridine (PYRIDIUM) 200 MG tablet Take 1 tablet (200 mg) by mouth 3 times daily as needed for irritation., Disp-9 tablet, R-0, E-Prescribe Scribe Disclosure: IFredy, am serving as a scribe at 1:06 AM on 02/27/2025 to document services personally performed by Javon Vázquez MD based on my observations and the provider's statements to me. Javon Vázquez MD 02/27/25 0438 * Karrie Hammond RN - 02/26/2025 11:50 PM CDT Pt reports he was dx with UTI on 02/15. Pt reports blood in his urine and difficulty urinating. Reports nausea and mild back pain. Pt took his last antibiotics today. Pt was in the ER earlier but leftbefore he was seen by an MD documented in this encounter Plan of Treatment Not on file documented as of this encounter Procedures Procedure Name Priority Date/Time Associated Diagnosis Comments CT ABDOMEN PELVIS W/O CONTRAST STAT 02/27/2025 1:24 AM CDT documented in this encounter Results * CT Abdomen Pelvis w/o Contrast (02/27/2025 1:24 AM CDT) Anatomical Region Laterality Modality Abdomen/Pelvis, SUBRAD CT AMY DY, UMP CT ABDOMEN PELVIS, RAD CT Computed Tomography 02/27/2025 1:24 AM CDT Impressions 02/27/2025 1:30 AM CDT IMPRESSION: 1. Negative noncontrast abdomen and pelvis CT. No findings to explain the patient's symptoms. Specifically, no urinary calculi or hydronephrosis. Narrative 02/27/2025 1:30 AM CDT EXAM: CT ABDOMEN PELVIS W/O CONTRAST LOCATION: [facility] DATE: 02/27/2025 INDICATION: UTI, L flank pain COMPARISON: None. TECHNIQUE: CT scan of the abdomen and pelvis was performed without IV contrast. Multiplanar reformats were obtained. Dose reduction techniques were used. CONTRAST: None. FINDINGS: LOWER CHEST: Normal. HEPATOBILIARY: Normal. PANCREAS: Normal. SPLEEN: Normal. ADRENAL GLANDS: Normal. KIDNEYS/BLADDER: Normal. BOWEL: Normal. LYMPH NODES: Normal. VASCULATURE: Normal. PELVIC ORGANS: Normal. MUSCULOSKELETAL: Normal. Procedure Note Saurav Reveles MD - 02/27/2025 EXAM: CT ABDOMEN PELVIS W/O CONTRAST LOCATION: [facility] DATE: 02/27/2025 INDICATION: UTI, L flank pain COMPARISON: None. TECHNIQUE: CT scan of the abdomen and pelvis was performed without IVcontrast. Multiplanar reformats were obtained. Dose reduction techniqueswere used. CONTRAST: None. FINDINGS: LOWER CHEST: Normal. HEPATOBILIARY: Normal. PANCREAS: Normal. SPLEEN: Normal. ADRENAL GLANDS: Normal. KIDNEYS/BLADDER: Normal. BOWEL: Normal. LYMPH NODES: Normal. VASCULATURE: Normal. PELVIC ORGANS: Normal. MUSCULOSKELETAL: Normal. IMPRESSION: 1. Negative noncontrast abdomen and pelvis CT. No findings to explain thepatient's symptoms. Specifically, no urinary calculi or hydronephrosis. Javon Vázquez MD IMG CT ORDERABLES Final Result documented in this encounter Visit Diagnoses Diagnosis Acute cystitis without hematuria- Primary Acute cystitis documented in this encounter Administered Medications Inactive Administered Medications - up to 3 most recent administrations Medication Order MAR Action Action Date Dose Rate Site ciprofloxacin (CIPRO) tablet 500 mg STAT, 500 mg, Oral, ONCE, On Fela 02/27/25 at 0145, For 1 dose, Administer at least 2 hours before or 4 hours after aluminum, calcium, iron, zinc or magnesium containing medications. May be taken with food or on an empty stomach. Do not administer alone with a dairy product like milk or yogurt or calcium-fortified juice, but may be administered with a meal containing dairy. Hold tube feeding 1 hour before and 1 hour after administration, Indications: Urinary Tract InfectionIndications:Urinary Tract Infection $Given 02/27/2025 1:51 AM CDT 500 mg documented in this encounter Active and Recently Administered Medications Times are shown in CDT. Scheduled Medication Order 02/25/2025 02/26/2025 02/27/2025 ciprofloxacin (CIPRO) tablet 500 mg (COMPLETED) STAT, 500 mg, Oral, ONCE, On Fela 02/27/25 at 0145, For 1 dose, Administer at least 2 hours before or 4 hours after aluminum, calcium, iron, zinc or magnesium containing medications. May be taken with food or on an empty stomach. Do not administer alone with a dairy product like milk or yogurt or calcium-fortified juice, but may be administered with a meal containing dairy. Hold tube feeding 1 hour before and 1 hour after administration, Indications: Urinary Tract Infection 0151 ($Given - Provi suzanne: Iram Finch RN) documented in this encounter Additional Health Concerns Assessment Noted Time PHQ-9 Depression Total Score: 0 02/22/20 24 11:02 AM CDT documented as of this encounter Care Teams Outside Sales Representative Relationship Specialty Start Date End Date No Ref-Primary, Physician PCP - General 02/21/24 Angella Rodríguez APRN MOTOR BUILDER ASSEMBLER [facility] [place] [address] [place] [address] Assigned PCP 03/25/24 Carly Chavira MD [address] [place] [address] [address] [place] [address] Endocrinology, Diabetes, and Metabolism 01/14/25 documented as of this encounter
--- OUTSIDE RECORDS SUMMARY | 2025-03-26 01:10 | XMS_ITS | Encounter Summary ---
Author Organization [facility] Address [address] [place] [id number] Care Team Providers Care Boring Machine Set Up Operator Name Role Phone No Ref-Primary, Physician Primary Care Provider Angella Rodríguez APRN STREET LIGHT REPAIRER Unavailable [phone] Carly Chavira MD Unavailable [phone] Encounter Details Date Type Department Care Team (Latest Contact Info) Description 02/26/2025 Travel Social History Tobacco Use Types Packs/Day Years [...] Answer Date Recorded Do you have housing? (Housin g is defined as stable permanent housing and does not include staying outside in a car, in a tent, in an abandoned building, in an overnight senior living, or couch-surfing.) Yes 12/25/2024 Are you worried [...] on file documented as of this encounter Plan of Treatment Not on file documented as of this encounter Visit Diagnoses Not on filedocumented in this encounter Additional Health Concerns Assessment Noted Time PHQ-9 Depression Total Score: 0 02/22/20 24 11:02 AM CDT documented as of this encounter Care Teams Boring Machine Set Up Operator Relationship Specialty Start Date End Date No Ref-Primary, Physician PCP - General 02/21/24 Angella Rodríguez APRN CNP [address] [place], [place] [address] Assigned PCP 03/25/24 Carly Chavira MD [address] [place] [address] [address] [place], [place] [address] Endocrinology, Diabetes, and Metabolism 01/14/25 documented as of this encounter
--- OUTSIDE RECORDS SUMMARY | 2025-03-26 01:10 | XMS_ITS | Clinical Summary ---
Author Organization [facility] Address [address] [place] [address] Care Team Providers Care Copy Worker Name Role Phone Unavailable Primary Care Provider Unavailabl e Source Comments You are receiving this document as you are listed as the primary care provider,follow-up provider, or the patient has been referred to you for consultation.This is in compliance with the Medicare and[facility] EHR Incentive Program,which states Providers who transition their patient to another setting of careor provider of care or refers their patient to another provider of care shouldprovide summary care record for each transition of care or referral. [facility] Allergies No known active allergies Medications insulin aspart (NOVOLOG) 100 UNIT/ML injection (vial) Inject subcutaneously three times daily before meals. 2 units per 15 grams Active Blood Glucose Monitoring Suppl (ACCU-CHEK GUIDE ME) w/Device KITIndications:Un controlled type 1 diabetes mellitus with hyperglycemia (HRC) Use as directed. 1 Kit 11/20/19 21 Active omeprazole (PRILOSEC) 20 MG capsuleIndication s:Uncontrolled type 1 diabetes mellitus with hyperglycemia (HRC) Take 1 Capsule by mouth daily. Take 1 hour before a meal. 90 Capsule 3 12/25/19 21 Active Continuous Blood Gluc Sensor (FREESTYLE RABIA 14 DAY SENSOR) MISCIndications:U ncontrolled type 1 diabetes mellitus with hyperglycemia (HRC) Use with Rabia Ashuelot 2 Each 11 12/25/19 21 Active Additional Information Patient not taking.Reported on 02/11/2021 Continuous Blood Gluc Supervisor [employer]ation (FREESTYLE RABIA 14 DAY READER) DEVIIndications:U ncontrolled type 1 diabetes mellitus with hyperglycemia (HRC) Use with Rabia Sensors 1 Each 1 12/25/19 21 Active Additional Information Patient not taking.Reported on 02/11/2021 B-D UF III MINI PEN NEEDLES 31G X 5 MM needleIndications :Uncontrolled type 1 diabetes mellitus with hyperglycemia (HRC) INJECT 1 EACH SUBCUTANEOUSLY THREE TIMES A DAY. 300 Each 3 12/31/19 21 Active atorvastatin (LIPITOR) 10 MG tablet Take 1 Tablet (10 mg) by mouth daily. 06/13/20 24 Active ACCU-CHEK GUIDE TEST test strip SMARTSI-6 Times Daily 09/24/19 25 Active Insulin Aspart FlexPen 100 UNIT/ML SOPN 2 units per 10 grams 12-14 units per meal BID 09/24/19 25 Active metFORMIN (GLUCOPHAGE) 1000 MG tablet Take 1 Tablet (1,000 mg) by mouth two times a day. 06/13/20 Active OZEMPIC, 0.25 OR 0.5 MG/DOSE, 2 MG/3ML injection Inject 0.5 mg subcutaneously once every week. 05/07/20 24 Active Multiple Vitamins-Minerals (MULTIVITAMIN ADULTS OR) Active PROTEIN OR Active sertraline (ZOLOFT) 50 MG tabletIndications :Anxiety (HRC) Take 1 Tablet (50 mg) by mouth daily. 90 Tablet 3 10/13/19 25 026 Active diclofenac (VOLTAREN) 1 % gelIndications:Me dial epicondylitis of left elbow Apply 2 g to skin 4 times a day. 350 g 10/13/19 25 Active Continuous Glucose Sensor (FREESTYLE RABIA 3 PLUS SENSOR) MISCIndications:T ype 2 diabetes mellitus without complication, without long-term current use of insulin (HRC) Use 1 Each continuous. 2 Each 10/17/19 25 Active insulin pen needle (BD PEN NEEDLE MARIA DE JESUS U/F) 32G X 4 MM Inject 1 Each subcutaneously 4 times a day. with pen injector device. Each needle is for one time use only 100 Each 10/17/19 25 Active insulin aspart (NOVOLOG FLEXPEN) 100 UNIT/ML pen injection INJECT 15 UNITS UNDER THE SKIN THREE TIMES DAILY BEFORE MEALS PLUS SSI MAX TOTAL DAILY DOSE 72 UNITS 60 mL 3 12/03/19 25 Active LANTUS SOLOSTAR 100 UNIT/ML pen Inject 45 units daily 45 mL 3 12/03/19 25 Active Active Problems Problem Noted Date Diagnosed Date Type 2 diabetes mellitus wit hout complication, without long-term current use of insulin 10/12/2024 Well controlled type 2 diabetes mellitus 021 Resolved Problems Problem Noted Date Diagnosed Date Resolved Date Uncontrolled type 1 diabetes mellitus with hyperglycemia 05/26/2020 04/01/2021 Immunizations Immunization Administration Dates Next Due DTaP 03/29/1995 Hib, Unspecified Formulation 03/29/1995 MMR 03/29/1995 Pfizer Monovalent 12+ Purple Top 02/21/2021,07/3 07/2020 Polio, Unspecified Formulation 03/29/1995 Tdap 09/08/2010 Family History Medical History Relation Name Comments Diabetes Mother Type 1 Diabetes Paternal Grandfather Type 1 Relation Name Status Comments Mother Paternal Grandfather Social History Tobacco Use Types Packs/Day Years Used Date Smoking Tobacco: Some Days Cigarettes Smokeless Tobacco: Never Tobacco Cessation:Ready to Q uit: Not Asked; Counseling Given: Not Answered Comments:Social use Alcohol Use Standard Drinks/Week Comments Yes 0 (1 standard drink = 0.6 oz pur e alcohol) daily- 6-12 pack PHQ-2 Answer Date Recorded PHQ-2 Score 4 10/12/2024 Sex and Gender Information Value Date Recorded Sex Assigned at Not on file Legal Sex Male 5:52 AM CDT Gender Identity Not on file Sexual Orientation Not on file Last Filed Vital Signs Vital Sign Reading Time Taken Comments Blood Pressure 112/63 10/16/2024 9:42 AM CDT Pulse 67 10/16/2024 9:42 AM CDT Temperature - - Respiratory Rate - - Oxygen Saturation - - Inhaled Oxygen Concentration - - Weight 88 kg (194 lb 1.6 oz) 10/16/2024 9:42 AM CDT Height 177.8 cm (5' 10) 04/01/2021 8:12 AM CDT Body Mass Index 27.85 04/01/2021 8:12 AM CDT Plan of Treatment Health Maintenance Due Date Last Done Comments Diabetes: Foot Exam 1991 Hep C Screening (Preventive Services) 1991 IPV (Polio) Vaccine (2 of 3 - 4-dose series) 04/26/1995 03/29/1995 HIV Screening (Preventive Services) 2007 Adult Preventive Visit 2009 HepB Vaccine (1) 2010 Pneumococcal Vaccine (1 of 2 - PCV) 2010 HPV Vaccine (1 - 3-dose SCDM series) 2018 DTaP/Tdap/Td Vaccine (3 - Tdap) 09/08/2020 09/08/2010, 09/08/2010, 03/29/1995 Diabetes: Eye Exam 04/01/2022 04/01/2021, 0 02/12/2021, 12/24/2020, Additional history exists Diabetes: HGBA1C 01/11/2025 10/12/2024, , 12/24/2020, Additional history exists COVID-19 Vaccine ( - season) 2025 02/21/2021, 01/30/2021 Influenza Vaccine (#1) 2025 Diabetes: Albumin/Creatinine Ratio, Urine 10/12/2025 10/12/2024, 04/01/2021 Diabetes: Creatinine 10/16/2025 10/16/2024, 10/12/2024, 04/01/2021 Diabetes: Lipid Panel 10/12/2029 10/12/2024 Zoster/Shingles Vaccine (1 of 2) 2041 Hib Vaccine Completed 03/29/1995 HepA Vaccine Aged Out No longer eligi ble based on patient's age to complete this topic MCV4 Vaccine Aged Out No longer eligi ble based on patient's age to complete this topic Meningococcal B Vaccine Aged Out No l onger eligible based on patient's age to complete this topic Procedures Procedure Name Priority Date/Time Associated Diagnosis Comments BASIC METABOLIC PANEL Routine 10/16/2024 10:14 AM CDT Type 2 diabetes mellitus without complication, without long-term current use of insulin (HRC) ALBUMIN/CREAT RATIO Routine 10/12/2024 11:00 AM CDT Type 2 diabetes mellitus without complication, without long-term current use of insulin (HRC) LIPID PANEL & DIRECT LDL (IF NEEDED) Routine 10/12/2024 10:41 AM CDT Type 2 diabetes mellitus without complication, without long-term current use of insulin (HRC) Hyperlipidemia, unspecified hyperlipidemia type (HRC) HGB A1C Routine 10/12/2024 10:41 AM CDT Type 2 diabetes mellitus without complication, without long-term current use of insulin (HR) from Last 3 Months or Most Recently Relevant to Health Maintenance Results * (ABNORMAL) BMP (10/16/2024 10:14 AM T) Pathologist [facility] Sodium 136 136 - 145 mmol/L 10/16/2024 11:50 AM [facility] Potassium 4.2 3.5 - 5.1 mmol/L 10/16/2024 11:50 AM [facility] Chloride 103 98 - 109 mmol/L 10/16/2024 11:50 AM [facility] CO2 23 20 - 29 mmol/L 10/16/2024 11:50 AM [facility] Anion Gap 10 6 - 16 mmol/L 10/16/2024 11:50 AM [facility] Calcium 8.5 8.4 - 10.4 mg/dL 10/16/2024 11:50 AM [facility] BUN 10 7 - 26 mg/dL 10/16/2024 11:50 AM [facility] Creatinine 0.61(L) 0.73 - 1.18 mg/dL 10/16/2024 11:50 AM [facility] Glucose 332(H) 70 - 100 mg/dL 10/16/2024 11:50 AM [facility] Comment:The given reference range is for the fasting state. Non-fasting reference range for glucose is 70 - 180 mg/dL. GFR, Estimated >60 >60 mL/min/1.7 3m2 10/16/2024 11:50 AM [facility] Hours Fasting 12.0 8 - 12 Hours 10/16/2024 11:50 AM [facility] Blood Venipuncture / Unknown 10/16/2024 10:14 AM CDT 10/16/2024 10:26 AM T Chikis Sherman MD LAB_1 Final Result Performing Organization Address [facility] Co de Phone Number [address] * Albumin/Creatinine Ratio,Random Urine (Today) (10/12/2024 11:00 AM CDT) [facility] Albumin/Creati nine Ratio, Urine, Random 9 <30 mg/g 10/12/2024 11:37 AM T [facility] Albumin, Urine, Random 5.2 mg/L 10/12/2024 11:37 AM T [facility] Creatinine, Urine, Random 59 >20 mg/dL mg/dL 10/12/2024 11:37 AM [facility] Urine Non-blood Collection / Unknown 10/12/2024 11:00 AM CDT 10/12/2024 11:00 AM CDT Daren Lake PA-C LAB_1 Final Result Performing Organization Address [facility] de Phone Number [facility] [address] [place] [address] * (ABNORMAL) Lipid Panel and Direct LDL(If Needed) (10/12/2024 10:41 AM CDT) [facility] Cholesterol 211(H) 0 - 199 mg/dL 10/12/2024 11:31 AM [facility] Triglyceride 84 <=149 mg/dL 10/12/2024 11:31 AM [facility] HDL Cholesterol 65 >=40 mg/dL 11:31 AM [facility] LDL, Calculated 129 <130 mg/dL 11:31 AM [facility] Non HDL Chol, Calculated 146 <=159 mg/dL 10/12/2024 11:31 AM [facility] Cholesterol/HDL Ratio 3.2 <=5.0 10/12/2024 11:31 AM [facility] Hours Fasting 0.1 8 - 12 Hours 10/12/2024 11:31 AM [facility] Comment:Lab unable to obtain patient's fasting status at time of specimen collection. Blood Venipuncture / Unknown 10/12/2024 10:41 AM CDT 10/12/2024 11:00 AM CDT Daren Lake PA-C LAB_1 Final Result [facility] [address] [place] [address], [facility] * (ABNORMAL) Hgb A1C (10/12/2024 10:41 AM CDT) Hemoglobin A1C 12.0(H) <=5.6 % 10/13/2024 8:56 AM CDT [facility] Estimated Average Glucose (Calc) 298 < 117 mg/dL 10/13/2024 8:56 AM CDT [facility] Comment:Estimated average gl ucose (eAG) converts A1c into glucose units (mg/dL) and estimates average glucose over the past approximately 3 months. The eAG reference interval (<117 mg/dL) corresponds to an A1c of <5.7%. Blood Venipuncture / Unknown 10/12/2024 10:41 AM CDT 10/12/2024 11:00 AM CDT Narrative [facility] - 10/13/2024 8:56 AM CDT For patients not previously diagnosed with diabetes: 5.7-6.4%: Increased risk for diabetes 6.5% and greater: Diagnostic for diabetes For patients diagnosed with diabetes: <8.0%: Goal of therapy for ages 18-75 Clinicians may recommend a higher or lower goal for specific individuals. Daren Lake PA-C LAB_1 Final Result Performing Organization Address City/[facility]/ZIP Co de Phone Number [facility] [address] [address], [facility] from Last 3 Months or Most Recently Relevant to Health [facility]
--- OUTSIDE RECORDS SUMMARY | 2025-03-26 01:11 | XMS_ITS | Clinical Summary ---
Author Organization [facility] Address [address] [place] [address] Care Team Providers Care Stars Coordinator Name Role Phone Elsewhere, Pcp Primary Care Provider Unavailabl e Source Comments Patient records contain information from all sites at [facility]. For routine questions regarding patient records, call [phone] during business hours, M-F 8:00 AM - 5:00 PM Central Time. Record requests for emergency care only can be directed to [phone] at any time.[facility] Allergies No known active allergies Medications insulin aspart U-100 (NovoLOG Flexpen U-100 Insulin) 100 unit/mL (3 mL) pen Inject 2 Units under the skin 3 (three) times a day with meals. 09/23/2024 Active insulin glargine 100 unit/mL (3 mL) pen Inject 44 Units under the skin at bedtime. 12/02/2024 Active Active Problems No known active problems Encounters Date Type Department Care Team Description 02/15/2025 12:51 PM CDT - 02/15/2025 4:13 PM CDT Emergency [facility] Emergency Department [address] [place] [phone] Jeremías Ledezma D.O. Urinary Tract Infection Site Not Specified (Primary Dx); Hyperglycemia Discharge Disposition: Home or Self Care 02/14/2025 3:41 PM CDT - 02/14/2025 4:37 PM CDT Emergency [facility] Emergency Department [address] [place] [phone] Procedure And Treatment Not Carried Out Due To Patient Leaving Prior To Being Seen By Health Care Provider (Primary Dx) Discharge Disposition: Left Against Medical Advice or Discontinued Care 01/19/2025 1:04 AM CDT - 01/19/2025 4:25 AM CDT Emergency [facility] Emergency Department [address] [place] [phone] Dennis Richey M.D. Pain Chest (Primary Dx); Adverse Effect Of Methamphetamines Initial Encounter Discharge Disposition: Home or Self Care from Last 3 Months Immunizations Immunization Administration Dates Next Due DTaP (Infanrix, Tripedia) 09/08/2010 HepB, Unspecified 09/08/2006,02/27/2004 MMR 02/27/2004 Td Preservative Free (TENIVAC, DECAVAC) 02/27/20 04 Social History Tobacco Use Types Packs/Day Years Used Date Smoking Tobacco: Some Days Cigarettes Smokeless Tobacco: Never Tobacco Cessation:Ready to Q uit: Not Asked; Counseling Given: Not Answered Alcohol Use Standard Drinks/Week Comments Yes 14 (1 standard drink = 0.6 oz pu re alcohol) Sex and Gender Information Value Date Recorded Sex Assigned at Not on file Legal Sex Male 4:28 AM [employer] Gender Identity Not on file Sexual Orientation [...] 12.8 oz) 02/14/2025 2:45 PM CDT Height 177 cm (5' 9.69) 01/19/2025 1:10 AM CDT Body Mass Index 27.77 01/19/2025 1:10 AM CDT Plan of Treatment Health Maintenance Due Date Last Done Comments Tobacco Cessation counseling 1991 IPV Vaccines (2 of 3 - 4-dos e series) 04/26/1995 03/29/1995 Hepatitis B Vaccines (3 of 3 - 3-dose series) 11/03/2006 09/08/2006, 02/27/2004 Pneumococcal vaccine (0-49 y ears) (1 of 2 - PCV) 2010 HPV Vaccines (1 - 3-dose SCD M series) 2018 DTaP,Tdap,and Td Vaccines (4 - Tdap) 09/08/2020 09/08/2010, 09/08/2010, 02/27/2004, Additional history exists Depression Screening (Annual PHQ-2) 07/03/2024 COVID-19 Vaccine (3 - 2024-2 6 season) 2025 02/21/2021, 01/30/2021 Influenza Vaccine (#1) 2025 Fasting Glucose for Diabetes Screening 02/15/2026 02/15/2025, 02/15/2025, 02/15/2025, Additional history exists HIV Screening Completed 11/29/2011 Hepatitis B Screening Discontinued 11/29/2011 Hepatitis C Screening Completed 11/29/2011 Procedures Procedure Name Priority Date/Time Associated Diagnosis Comments GLUCOSE POCT, B Routine 02/15/2025 3:[address] ABDOMEN PELVIS WITH IV CONTRAST RAD - Semiurgent (Fast; most ED patients; some inpatients) 02/15/2025 2:07 PM CDT HC URINALYSIS AUTO WO MICRO STAT 02/15/2025 1:56 PM CDT URINALYSIS WITH MICROSCOPIC IF INDICATED, U STAT 02/15/2025 1:56 PM CDT CHLAMYDIA/GONORRHOEA E AMPLIFIED RNA STAT 02/15/2025 1:56 PM CDT ETHANOL, S STAT 02/15/2025 1:11 PM CDT BETA-HYDOXYBUTYRATE, POCT, B STAT 02/15/2025 1:11 PM CDT VENOUS BLOOD GAS W/O COOX STAT 02/15/2025 1:11 PM CDT BASIC METABOLIC PANEL, S/P STAT 02/15/2025 1:11 PM CDT CBC WITH DIFFERENTIAL, B STAT 02/15/2025 1:11 PM CDT GLUCOSE POCT, B Routine 02/15/2025 12:56 PM CDT GLUCOSE POCT, B Routine 02/14/2025 2:54 PM CDT HC URINALYSIS AUTO WO MICRO STAT 02/14/2025 2:52 PM CDT URINALYSIS WITH MICROSCOPIC IF INDICATED, U STAT 02/14/2025 2:52 PM CDT TROPONIN T, 2H/6H REFLEX, 5TH GEN, P Timed 01/19/2025 3:41 AM CDT DX CHEST AP OR PA AND LATERAL 2 VIEWS RAD - Semiurgent (Fast; most ED patients; some inpatients) 01/19/2025 2:10 AM CDT GLUCOSE POCT, B Routine 01/19/2025 1:47 AM CDT TROPONIN T, BASELINE, 5TH GEN, P STAT 01/19/2025 1:34 AM CDT COMPREHENSIVE METABOLIC PANEL, S/P STAT 01/19/2025 1:34 AM CDT CBC WITH DIFFERENTIAL, B STAT 01/19/2025 1:34 AM CDT ECG STAT 01/19/2025 1:14 AM CDT HXZZORDERS Routine 11/29/2011 9:21 AM CDT HXZZORDERS Routine 11/29/2011 9:21 AM CDT HEPATITIS B SURFACE ANTIGEN Routine 11/29/2011 9:21 AM CDT from Last 3 Months or Most Recently Relevant to Health Maintenance Results * (ABNORMAL) Glucose, POCT (02/15/2025 3:24 PM CDT) Only the most recent of4 resultswithin the time period is included. Glucose, POCT, B 274(H) 70 - 140 mg/dL 02/15/2025 3:24 PM CDT MKTO Blood 02/15/2025 3:24 PM CDT 02/15/2025 3:37 PM CDT us Generic Rals LAB POCT ORDERABLES-MANUAL Final Result [facility] [address] [place] [address], [facility] MKTO [facility] [address] [place] [address] * CT Abdomen Pelvis with IV Contrast [...] urinalysis. 2. No additional CT abnormality identified. us Jeremías CARVALHO CT PROCEDURES Final Resu lt * (ABNORMAL) Urinalysis with Microscopic if Indicated: Urine, Midstream (02/15/2025 1:56 PM CDT) Only the most recent of2 resultswithin the time period is included. Source Urine, Urine, Midstream 02/15/2025 2:08 PM [...] 8.0 02/15/2025 2:08 PM CDT MKTO Specific [place] >1.035(A) 1.001 - 1.035 02/15/2025 2:08 PM CDT MKTO Urobilinogen 1.0 0.2 - 1.0 mg/dL 02/15/2025 2:08 PM CDT MKTO Urine (Urine, Midstream) 02/15/2025 1:56 PM CDT 02/15/2025 2:02 PM CDT us Jose Marroquin P.A.-C., M.S. LAB URINE ORDERABLES Final Result Performing Organization Address City/[facility] Co de Phone Number [facility] [address] [place] [address], [facility] [place] [address] * (ABNORMAL) Microscopic Automated (02/15/2025 1:56 PM CDT) Only the most recent of2 resultswithin the time period is included. White Blood Cells >100(A) /hpf 02/15/2025 2:13 [...] 1:56 PM CDT 02/15/2025 2:02 PM CDT us Jose Marroquin P.A.-C., M.S. LAB URINE ORDERABLES Final Result Performing Organization Address City/[facility]/ZIP Co de Phone Number [facility] [address] [place] [address], [address] [address] * Chlamydia / Gonorrhoeae Amplified RNA (02/15/2025 [...] ENERAL ORDERABLES Final Result Performing Organization Address City/[facility]/ZIP Co de Phone Number [facility] [address] [place] [phone], [address] [address] * (ABNORMAL) Beta-hydroxybutyrate, Point of Care Testing, Blood (02/15/2025 1:11 PM CDT) Pathologist [facility] Beta-hydroxybut yrate, POCT, B 2.0(H) 0.0 - 0.5 mmol/L 02/15/2025 1:19 PM CDT MKTO Blood (Blood, Venous) 02/15/2025 1:11 PM CDT 02/15/2025 1:17 PM CDT us Jose Marroquin P.A.-C., M.S. LAB BLOOD NON ADD-ON Final Result [facility] [address] [place] [address], [address] [address] * Ethanol Level, Serum (02/15/2025 1:11 PM CDT) Ethanol, P <10 <10 mg/dL 02/15/2025 1:3 9 PM CDT MKTO Blood (Blood, Venous) 02/15/2025 1:11 PM CDT 02/15/2025 1:17 PM CDT us Jose Marroquin P.A.-C., M.S. LAB BLOOD NON ADD-ON Final Result Performing Organization Address City/[facility] Co de Phone Number [facility] [address] [place] [address] * (ABNORMAL) Blood Gas without Coox, Venous [...] NON ADD-ON Final Result Performing Organization Address City/[facility]/ZIP Co de Phone Number [facility] [address] [place] [address], [place] [address] * (ABNORMAL) CBC with Differential, Blood (02/15/2025 1:11 PM CDT) Only the most recent of2 resultswithin the time period is included. Hemoglobin 16.8(H) 13.2 - 16.6 g/dL 02/15/2025 [...] M.S. LAB BLOOD ADD-ON Fin al Result [facility] [address] [place] [address], [facility] in [address] [address] * (ABNORMAL) Basic Metabolic Panel (02/15/2025 1:11 [...] CDT Jose Marroquin P.A.-C., M.S. LAB BLOOD ADD-ON Fin al Result [facility] [address] [place] [id number], [facility] in [address] [address] * Troponin T, 2 Hour with 6 Hour Reflex, 5th Gen (01/19/2025 3:41 AM CDT) Troponin T, 2 hr, 5th gen 7 <=15 ng/L 01/19/2025 4:06 AM CDT MKTO 2H Delta 2 ng/L 01/19/2025 4:06 AM CDT MKTO Comment:6 hour collection no t indicated. 2H Delta Interp Not Changing 01/19/2025 4:06 AM CDT MKTO Blood 01/19/2025 3:41 AM CDT 01/19/2025 3:47 AM CDT us Dennis Richey M.D. LAB BLOOD TROPONIN Final R esult [facility] [place] [address], [facility] MKTO [facility] [address] [place] [address] * DX Chest AP or PA and Lateral 2 Views (01/19/2025 2:10 AM CDT) Anatomical Region Laterality Modality Chest, Thoracic RST LOS, Tho racic ARZ LOS, Thoracic FLA LOS N/A Digital Radiography Impressions 01/19/2025 2:15 AM CDT No pneumothorax, focal consolidation, or pleural effusion. Normal heart size. Degenerative changes of the spine. No definite acute displaced fracture. Narrative 01/19/2025 2:15 AM CDT EXAM: DX CHEST AP OR PA AND LATERAL 2 VIEWS Procedure Note Curtis Cantu M.D. - 01/19/2025 EXAM: DX CHEST AP OR PA AND LATERAL 2 VIEWS IMPRESSION: No pneumothorax, focal consolidation, or pleural effusion. Normal heartsize. Degenerative changes of the spine. No definite acute displacedfracture. us Dennis Richey M.D. IMG DIAGNOSTIC IMAGING PRO CEDURES Final Result * Troponin T, Baseline with 2 Hour/6 Hour Reflex Biomarker Panel (01/19/2025 1:34 AM CDT) Troponin T, Baseline, 5th gen <6 <=15 ng/L 01/19/2025 2:01 AM CDT MKTO Blood (Blood, Venous) 01/19/2025 1:34 AM CDT 01/19/2025 1:39 AM CDT us Dennis Richey M.D. LAB BLOOD TROPONIN Final R esult [facility] [address] [place] [address], [facility] MKTO [facility] [address] [place] [address] * (ABNORMAL) Comprehensive Metabolic Panel (01/19/2025 1:34 AM CDT) Potassium, P 3.7 3.6 - 5.2 mmol/L 01/19/2025 2:01 AM CDT MKTO Sodium, P 136 135 - 145 mmol/L 01/19/2025 2:01 AM CDT MKTO Chloride, P 99 98 - 107 mmol/L 01/19/2025 2:01 AM CDT MKTO Bicarbonate, P 23 22 - 29 mmol/L 01/19/2025 2:01 AM CDT MKTO Anion Gap, P 14 7 - 15 01/19/2025 2:01 AM CDT MKTO BUN (Blood Urea Nitrogen), P 12 8 - 24 mg/dL 01/19/2025 2:01 AM CDT MKTO Creatinine 0.65(L) 0.74 - 1.35 mg/dL 01/19/2025 2:01 AM CDT MKTO Estimated GFR (eGFR) >90 >=60 mL/min/BS A 01/19/2025 2:01 AM CDT MKTO Comment: Estimated GFR calculated using the 2020 CKD_EPI creatinine equation. Calcium, Total, P 8.8 8.6 - 10.0 mg/dL 01/19/2025 2:01 AM CDT MKTO Glucose, P 306(H) 70 - 140 mg/dL 01/19/2025 2:01 AM CDT MKTO Protein, Total, P 6.2(L) 6.3 - 7.9 g/dL 01/19/2025 2:01 AM CDT MKTO Albumin, P 4.0 3.5 - 5.0 g/dL 01/19/2025 2:01 AM CDT MKTO Aspartate Aminotransferase (AST), P 21 8 - 48 U/L 01/19/2025 2:01 AM CDT MKTO Alkaline Phosphatase, P 80 40 - 129 U/L 01/19/2025 2:01 AM CDT MKTO Alanine Aminotransferase (ALT), P 17 7 - 55 U/L 01/19/2025 2:01 AM CDT MKTO Bilirubin, Total, P 0.4 0.0 - 1.2 mg/dL 01/19/2025 2:01 AM CDT MKTO Blood (Blood, Venous) 01/19/2025 1:34 AM CDT 01/19/2025 1:39 AM CDT Dennis Richey M.D. LAB BLOOD ADD-ON Final Res ult [facility] [place] [address], [facility] MKTO [facility] [place] [address] * ECG 12 Lead (01/19/2025 1:14 AM CDT) Ventricular Rate ECG/Min 103 BPM MUSE IA Interval 120 ms MUSE QRSD Interval 92 ms MUSE QT Interval 356 ms MUSE QTC Interval 466 ms MUSE P [place] 61 degrees MUSE R [place] 45 degrees MUSE T Wave [place] 7 degrees MUSE 01/19/2025 1:14 AM CDT 01/19/2025 1:17 AM CDT Impressions MUSE - 01/19/2025 1:17 AM CDT Sinus tachycardia Nonspecific T wave abnormality No previous ECGs available Reviewed by ANGELES Parmar Narrative Procedure Note Dawit Farfan M.D. - 01/19/2025 IMPRESSION: Sinus tachycardia Nonspecific T wave abnormality No previous ECGs available Reviewed by ANGELES Parmar us Dennis Richey M.D. ECG ORDERABLES Final Resu lt Performing Organization Address [facility] de Phone Number MUSE NA * HXZZORDERS (11/29/2011 9:21 AM CDT) Only the most recent of2 resultswithin the time period is included. HXHep C Ab-Page Negative Negative POWERCHART Comment: Nzzvmn-lj-bdemqa ratio is <1.00. Test Performed by: [facility] Dpt of Lab Med and Pathology [address] [place] [address] Sap Specialist: Javier Nolen III, M.D. Blood 11/29/2011 9:21 AM CDT us Bassem Roman M.D. LAB HISTORICAL ORDERS Linda l Result Performing Organization Address [facility] de Phone Number POWERCHART * Hepatitis B Surface Antigen (11/29/2011 9:21 AM CDT) HBs Antigen, S Negative Negative POWERCHART Comment: Test Performed by: [facility] Dpt of Lab Med and Pathology [address] [place] [address] Sap Specialist: Javier Nolen III, M.D. Blood 11/29/2011 9:21 AM CDT us Bassem Roman M.D. LAB MICROBIOLOGY - BLOOD O RDERABLES Final Result Performing Organization Address [facility] de Phone Number POWERCHART from Last 3 Months or Most Recently Relevant to Health Maintenance Insurance [facility] C[facility] Care Teams Stars Coordinator Relationship Specialty Start Date End Date Elsewhere, Pcp PCP - General Internal Medicine 02/14/25
--- OUTSIDE RECORDS SUMMARY | 2025-03-26 01:11 | XMS_ITS | Clinical Summary ---
Author Organization [facility] Address [address] [place] [address] Care Team Providers Care Medicare Compliance Auditor Name Role Phone No Ref-Primary, Physician Primary Care Provider Angella Rodríguez APRN COLORIST PHOTOGRAPHY Unavailable [phone] Carly Chavira MD Unavailable [phone] Allergies No known active allergies Medications * This document contains information received from the source organization and may not represent a complete record from that organization. ACCU-CHEK GUIDE test stripIndications: Uncontrolled type 2 diabetes mellitus with hyperglycemia (H),Type 2 diabetes mellitus with other specified complication, with long-term current use of insulin (H) Use to test blood sugar 5-6 times daily or as directed. 500 strip 3 02/22/20 24 Active blood glucose monitoring (SOFTCLIX) lancetsIndication s:Uncontrolled type 2 diabetes mellitus with hyperglycemia (H),Type 2 diabetes mellitus with other specified complication, with long-term current use of insulin (H) Use to test blood sugar 5-6 times daily or as directed. 500 each 3 02/22/20 24 Active metFORMIN (GLUCOPHAGE) 1000 MG tabletIndications :Uncontrolled type 2 diabetes mellitus with hyperglycemia (H),Type 2 diabetes mellitus with other specified complication, with long-term current use of insulin (H) Take 1 tablet (1,000 mg) by mouth 2 times daily (with meals). 60 tablet 1 12/28/19 25 Active folic acid (FOLVITE) 1 MG tabletIndications :Alcohol use disorder Take 1 tablet (1 mg) by mouth daily. 30 tablet 1 12/28/19 25 Active hydrOXYzine HCl (ATARAX) 25 MG tabletIndications :PARISH (generalized anxiety disorder) Take 1 tablet (25 mg) by mouth every 4 hours as needed for anxiety. 60 tablet 1 12/28/19 25 Active mirtazapine (REMERON) 15 MG tabletIndications :PARISH (generalized anxiety disorder),Major depressive disorder, recurrent episode, moderate (H) Take 1 tablet (15 mg) by mouth at bedtime. 30 tablet 1 12/28/19 25 Active multivitamin w/minerals (THERA-VIT-M) tabletIndications :Alcohol use disorder Take 1 tablet by mouth daily. 30 tablet 1 12/28/19 25 Active naltrexone (DEPADE/REVIA) 50 MG tabletIndications :Alcohol use disorder Take 1 tablet (50 mg) by mouth daily. 30 tablet 1 12/28/19 25 Active thiamine (B-1) 100 MG tabletIndications :Alcohol use disorder Take 1 tablet (100 mg) by mouth daily. 30 tablet 1 12/28/19 25 Active insulin pen needle (32G X 4 MM) 32G X 4 MM miscellaneousIndi cations:Uncontrol led type 2 diabetes mellitus with hyperglycemia (H),Type 2 diabetes mellitus with other specified complication, with long-term current use of insulin (H) Use 5 pen needles daily or as directed. 200 each 1 12/28/19 25 Active insulin aspart (NOVOLOG PEN) 100 UNIT/ML penIndications:Ty pe 2 diabetes mellitus with other specified complication, with long-term current use of insulin (H) Inject 10 Units subcutaneously 3 times daily (with meals). 15 mL 12/28/19 25 Active insulin aspart (NOVOLOG PEN) 100 UNIT/ML penIndications:Ty pe 2 diabetes mellitus with other specified complication, [...] unless directed otherwise by provider. 15 mL 12/28/19 25 Active insulin aspart (NOVOLOG PEN) 100 UNIT/ML penIndications:Ty pe 2 diabetes mellitus with other specified complication, [...] >400, call on-call medical provider 15 mL 12/28/19 25 Active insulin glargine (LANTUS PEN) 100 UNIT/ML penIndications:Ty pe 2 diabetes mellitus with other specified complication, with long-term current use of insulin (H) Inject 44 Units subcutaneously at bedtime. 15 mL 12/28/19 25 Active ciprofloxacin (CIPRO) 500 MG tablet Take 1 tablet (500 mg) by mouth 2 times daily for 13 doses. 13 tablet 02/28/20 25 025 phenazopyridine (PYRIDIUM) 200 MG tablet Take 1 tablet (200 mg) by mouth 3 times daily as needed for irritation. 9 tablet 02/28/20 25 025 Active Problems Problem Noted Date Diagnosed Date Alcohol abuse 12/25/2024 Hyperglycemia 12/25/2024 Uncontrolled type 2 diabetes mellitus with hyper glycemia 02/22/2024 Type 2 diabetes mellitus wit h other specified complication, with long-term current use of insulin 02/22/2024 Hypercholesteremia 02/22/2024 DKA (diabetic ketoacidoses) 03/09/2020 Overview (04/02/2021): Replacing diagnoses that were inactivated after the 04/02/2021 regulatory import. 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 Date Type Department Care Team Description 02/27/2025 12:13 AM CDT - 02/27/2025 1:55 AM CDT Emergency [facility] Emergency Dept [address] [place] [address] Javon Vázquez MD Acute cystitis without hematuria (Primary Dx) Discharge Disposition: Home or Self Care 02/26/2025 8:37 PM CDT - 02/26/2025 9:14 PM CDT Emergency [facility] Emergency Dept [address] [place] [address] Flaco Raphael, SHANA Discharge Disposition: Home or Self Care 02/26/2025 Travel 01/14/2025 PRE VISIT [facility] [address] [place] [phone] Carly Chavira MD *-*INCOMING RECORDS*-* 12/25/2024 Telephone [facility] Behavioral Health Intake [address] [place] [phone] Generic, Behavioral Intake, /CD Inpatient 12/25/2024 Travel from Last 3 Months Immunizations Immunization Administration Dates Next Due DTAP (<7y) 09/08/2010,03/29/1995 DTaP, Unspecified 09/08/2010 HIB, Unspecified 03/29/1995 HepB, Unspecified 09/08/2006,02/27/2004 MMR (MMRII) 02/27/2004,03/29/1995 Polio, Unspecified 03/29/1995 TD,PF 7+ (Tenivac) 02/27/2004 Family History Medical History Relation Comments No Known Problems Father Diabetes Maternal Aunt Diabetes Type 1 Mother Breast Cancer No family hx of Cancer No family hx of Colon Cancer No family hx of Heart Disease No family hx of Relation Status Comments Father Maternal Aunt Alive Mother Social History Tobacco Use Types Packs/Day Years [...] Mass Index 26.9 02/26/2025 11:51 PM CDT Plan of Treatment Health Maintenance Due Date Last Done Comments ADVANCE CARE PLANNING 1991 DEPRESSION ACTION PLAN 1991 DIABETIC FOOT EXAM 1991 EYE EXAM 1991 HEPATITIS B VACCINE (3 of 3 - 3-dose series) 11/03/2006 09/08/2006, 02/27/2004 HEPATITIS A VACCINE (1 of 2 - Risk 2-dose series) 2010 PNEUMOCOCCAL VACCINE: PEDIATRICS (0 to 5 YEARS) AND AT-RISK PATIENTS (6 to 49 YEARS) (1 of 2 - PCV) 2010 DTAP/TDAP/TD VACCINE (5 - Tdap) 09/08/2020 09/08/2010, 09/08/2010, 09/08/2010, Additional history exists MICROALBUMIN 12/26/2020 12/27/2019 PHQ-9 08/24/2024 02/22/2024 YEARLY PREVENTIVE VISIT 11/14/2024 11/15/2023 ANNUAL REVIEW OF HM ORDERS 02/21/2025 02/22/2024 COVID-19 VACCINE (3 - season) 2025 02/21/2021, 01/30/2021 INFLUENZA VACCINE (#1) 2025 A1C 03/28/2025 12/26/2024, 090 01/2020, 12/27/2019 BMP 12/26/2025 12/26/2024, 06/2 10/2024, 12/25/2024, Additional history exists LIPID 12/26/2025 12/26/2024, 03/09/2020 ZOSTER VACCINE (1 of 2) 2041 HEPATITIS C SCREENING Completed 11/15/2023 HIV SCREENING Completed 11/15/2023 HPV VACCINE (No Doses Required) Completed MENINGITIS VACCINE Aged Out No longer eligible based on patient's age to complete this topic Procedures Procedure Name Priority Date/Time Associated Diagnosis Comments CT ABDOMEN PELVIS W/O CONTRAST STAT 02/27/2025 1:24 AM CDT ROUTINE UA WITH MICROSCOPIC REFLEX TO CULTURE STAT 02/26/2025 9:04 PM CDT GLUCOSE BY METER Routine 12/27/2024 7:40 AM CDT GLUCOSE BY METER Routine 12/27/2024 2:11 AM CDT GLUCOSE BY METER Routine 12/26/2024 9:10 PM CDT GLUCOSE BY METER Routine 12/26/2024 5:30 PM CDT GLUCOSE BY METER Routine 12/26/2024 11:3 9 AM CDT GLUCOSE BY METER Routine 12/26/2024 7:43 AM CDT TSH WITH FREE T4 REFLEX Routine 12/26/2024 7:26 AM CDT FOLATE Routine 12/26/2024 7:26 AM CDT VITAMIN B12 Routine 12/26/2024 7:26 AM CDT COMPREHENSIVE METABOLIC PANEL Routine 12/26/2024 7:26 AM CDT LIPID PROFILE Routine 12/26/2024 7:26 AM CDT HEMOGLOBIN A1C Routine 12/26/2024 7:26 AM CDT GLUCOSE BY METER Routine 12/26/2024 2:39 AM CDT GLUCOSE BY METER Routine 12/25/2024 10:5 8 PM CDT BASIC METABOLIC PANEL STAT 12/25/2024 5:27 PM CDT URINE DRUG SCREEN STAT 12/25/2024 5:1 0 PM CDT URINE DRUG SCREEN PANEL STAT 12/25/2024 5:10 PM CDT GLUCOSE BY METER STAT 12/25/2024 4:13 PM CDT BLOOD GAS VENOUS STAT 12/25/2024 3:42 PM CDT CBC WITH PLATELETS & DIFFERENTIAL STAT 12/25/2024 3:25 PM CDT MAGNESIUM STAT 12/25/2024 3:25 PM CDT CBC WITH PLATELETS AND DIFFERENTIAL STAT 12/25/2024 3:25 PM CDT OSMOLALITY STAT 12/25/2024 3:25 PM CDT KETONE BETA-HYDROXYBUTYRATE QUANTITATIVE, RAPID STAT 12/25/2024 3:25 PM CDT ETHANOL LEVEL BLOOD STAT 12/25/2024 3 :25 PM CDT COMPREHENSIVE METABOLIC PANEL STAT 12/25/2024 3:25 PM CDT ALCOHOL BREATH TEST POCT STAT 12/25/2024 2:25 PM CDT ALCOHOL BREATH TEST POCT STAT 12/25/2024 2:25 PM CDT GLUCOSE BY METER STAT 12/25/2024 2:21 PM CDT ABSTRACT MICROALBUMIN Routine 12/27/2019 from Last 3 Months or Most Recently Relevant to Health Maintenance Results * CT Abdomen Pelvis w/o Contrast [...] EXAM: CT ABDOMEN PELVIS W/O CONTRAST LOCATION: [facility] DATE: 02/27/2025 INDICATION: UTI, L flank pain [...] EXAM: CT ABDOMEN PELVIS W/O CONTRAST LOCATION: [facility] DATE: 02/27/2025 INDICATION: UTI, L flank pain [...] Vázquez MD IMG CT ORDERABLES Final Result * (ABNORMAL) UA with Microscopic reflex to Culture (02/26/2025 9:04 PM CDT) Color Urine Straw Colorless, Straw, Light Yellow, Yellow 02/26/2025 9:31 PM CDT LABORATORY Appearance Urine Clear Clear 02/27/20 9:31 PM CDT LABORATORY Glucose Urine >=1000(A) Negative mg/dL 02/26/2025 9:31 PM CDT LABORATORY Bilirubin Urine Negative Negative 9:31 PM CDT LABORATORY Ketones Urine Negative Negative mg/dL 02/26/2025 9:31 PM CDT LABORATORY Specific [place] Urine 1.020 1.003 - 1.035 JESSICA 02/26/2025 9:31 PM CDT LABORATORY Blood Urine Negative Negative 02/26/2025 9:31 PM CDT LABORATORY pH Urine 5.5 5.0 - 7.0 02/26/2025 9:31 PM CDT LABORATORY Protein Albumin Urine Negative Negative mg/dL 02/26/2025 9:31 PM CDT LABORATORY Urobilinogen Urine Normal Normal mg/dL 02/26/2025 9:31 PM CDT LABORATORY Nitrite Urine Negative Negative 02/26/2025 9:31 PM CDT LABORATORY Leukocyte Esterase Urine Negative Negative 02/26/2025 9:31 PM CDT LABORATORY Bacteria Urine Few(A) None Seen /HPF 02/26/2025 9:31 PM CDT LABORATORY RBC Urine 1 <=2 /HPF 02/26/2025 9:31 PM CDT LABORATORY WBC Urine 8(H) <=5 /HPF 02/26/2025 9:31 PM CDT LABORATORY Squamous Epithelials Urine <1 <=1 /HPF 02/26/2025 9:31 PM CDT LABORATORY Urine MID-STREAM URINE SPECIMEN / Unknown Non-blood Collection / Unknown 02/26/2025 9:04 PM CDT 02/26/2025 9:14 PM CDT Narrative [facility] LABORATORY - 02/26/2025 9:31 PM CDT Urine Culture not indicated us Flaconatasha Raphael PA-C LAB - URINE ORDERABLES Final Result LABORATORY [facility] [address] Lab (1st floor, no room number) [place] [address] * (ABNORMAL) Glucose by meter (12/27/2024 7:40 AM CDT) Only the most recent of10 resultswithin the time period is included. GLUCOSE BY METER POCT 233(H) 70 - 99 mg/dL 12/27/2024 7:48 AM CDT UR LABORATORY POC Blood, Capillary BLOOD SPECIMEN / Unknown 12/27/2024 7:40 AM CDT 12/27/2024 7:48 AM CDT us Charbel Hightower MD LAB - BEAKER POCT Final R esult Performing Organization Address City/[facility]/ZIP Co de Phone Number UR LABORATORY POC [facility] [address] [place] [address], Room [address] * TSH with free T4 reflex and/or T3 as indicated (12/26/2024 7:26 AM CDT) Pathologist [facility] TSH 0.68 0.30 - 4.20 uIU/mL 12/26/2024 9:12 AM CDT UR LABORATORY Blood BLOOD SPECIMEN / Unknown Venipuncture / Unknown 12/26/2024 7:26 AM CDT 12/26/2024 7:36 AM CDT us Deborah Sung APRN COLORIST PHOTOGRAPHY LAB - BLOOD ORDERABLE S Final Result UR LABORATORY [facility] Lab [address] [place] [address], Room [address] * (ABNORMAL) Lipid Profile (12/26/2024 7:26 AM CDT) Cholesterol 225(H) <200 mg/dL 12/26/2024 9:12 AM CDT UR LABORATORY Triglycerides 215(H) <150 mg/dL 12/26/2024 9:12 AM CDT UR LABORATORY Direct Measure HDL 51 >=40 mg/dL 12/26/2024 9:12 AM CDT UR LABORATORY LDL Cholesterol Calculated 131(H) <100 mg/dL 12/26/2024 9:12 AM CDT UR LABORATORY Comment:LDL calculated using the Friedewald equation. Non HDL Cholesterol 174(H) <130 mg/dL 12/26/2024 9:12 AM CDT UR LABORATORY Blood BLOOD SPECIMEN / Unknown Venipuncture / Unknown 12/26/2024 7:26 AM CDT 12/26/2024 7:36 AM CDT Narrative UR LABORATORY - 12/26/2024 9:12 AM CDT Cholesterol Desirable: < 200 mg/dL Borderline High: 200 - 239 mg/dL High: >= 240 mg/dL Triglycerides Normal: < 150 mg/dL Borderline High: 150 - 199 mg/dL High: 200-499 mg/dL Very High: >= 500 mg/dL Direct Measure HDL Female: >= 50 mg/dL Male: >= 40 mg/dL LDL Cholesterol Desirable: < 100 mg/dL Above Desirable: 100 - 129 mg/dL Borderline High: 130 - 159 mg/dL High: 160 - 189 mg/dL Very High: >= 190 mg/dL Non HDL Cholesterol Desirable: < 130 mg/dL Above Desirable: 130 - 159 mg/dL Borderline High: 160 - 189 mg/dL High: 190 - 219 mg/dL Very High: >= 220 mg/dL us Deborah Sung SENIOR PROPERTY ACCOUNTANT COLORIST PHOTOGRAPHY LAB - BLOOD ORDERABLE S Final Result UR LABORATORY [facility] [address] [facility], [address] [place] [address], [facility] * (ABNORMAL) Hemoglobin A1c (12/26/2024 7:26 AM CDT) Estimated Average Glucose 283(H) <117 mg/dL 12/26/2024 8:02 AM CDT UR LABORATORY Hemoglobin A1C 11.5(H) <5.7 % 12/26/2024 8:02 AM CDT UR LABORATORY Comment: Normal <5.7% Prediabetes 5.7-6.4% Diabetes 6.5% or higher Note: Adopted from ADA consensus guidelines. Blood BLOOD SPECIMEN / Unknown Venipuncture / Unknown 12/26/2024 7:26 AM CDT 12/26/2024 7:36 AM CDT Deborah Sung APRN COLORIST PHOTOGRAPHY LAB - BLOOD ORDERABLE S Final Result UR LABORATORY [facility] [address] [facility], [address] [place] [address] * Folate (12/26/2024 7:26 AM CDT) Folic Acid 20.0 4.6 - 34.8 ng/mL 12/26/2024 9:45 AM CDT UU LABORATORY Blood BLOOD SPECIMEN / Unknown Venipuncture / Unknown 12/26/2024 7:26 AM CDT 12/26/2024 7:38 AM CDT Deborah Sung APRN COLORIST PHOTOGRAPHY LAB - BLOOD ORDERABLE S Final Result UU LABORATORY [facility] Core Lab [address] [facility], [address] [place] [address] * (ABNORMAL) Comprehensive metabolic panel (12/26/2024 7:26 AM CDT) Only the most recent of2 resultswithin the time period is included. Sodium 135 135 - 145 mmol/L 12/26/2024 9:12 AM CDT UR LABORATORY Potassium 4.5 3.4 - 5.3 mmol/L 12/26/2024 9:12 AM CDT UR LABORATORY Carbon Dioxide (CO2) 24 22 - 29 mmol/L 12/26/2024 9:12 AM CDT UR LABORATORY Anion Gap 13 7 - 15 mmol/L 12/26/2024 9:12 AM CDT UR LABORATORY Urea Nitrogen 10.1 6.0 - 20.0 mg/dL 12/26/2024 9:12 AM CDT UR LABORATORY Creatinine 0.76 0.67 - 1.17 mg/dL 12/26/2024 9:12 AM CDT UR LABORATORY GFR Estimate >90 >60 mL/min/1.7 3m2 12/26/2024 9:12 AM CDT UR LABORATORY Comment:eGFR calculated usin 2020 CKD-EPI equation. Calcium 9.1 8.8 - 10.4 mg/dL 12/26/2024 9:12 AM CDT UR LABORATORY Chloride 98 98 - 107 mmol/L 12/26/2024 9:12 AM CDT UR LABORATORY Glucose 287(H) 70 - 99 mg/dL 12/26/2024 9:12 AM CDT UR LABORATORY Alkaline Phosphatase 78 40 - 150 U/L 12/26/2024 9:12 AM CDT UR LABORATORY AST 21 0 - 45 U/L 12/26/2024 9:12 AM CDT UR LABORATORY ALT 19 0 - 70 U/L 12/26/2024 9:12 AM CDT UR LABORATORY Protein Total 6.5 6.4 - 8.3 g/dL 12/26/2024 9:12 AM CDT UR LABORATORY Albumin 4.0 3.5 - 5.2 g/dL 12/26/2024 9:12 AM CDT UR LABORATORY Bilirubin Total 1.0 <=1.2 mg/dL 12/26/2024 9:12 AM CDT UR LABORATORY Blood BLOOD SPECIMEN / Unknown Venipuncture / Unknown 12/26/2024 7:26 AM CDT 12/26/2024 7:36 AM CDT us Deborah Sung SENIOR PROPERTY ACCOUNTANT COLORIST PHOTOGRAPHY LAB - BLOOD ORDERABLE S Final Result UR LABORATORY [facility] [address] [facility], [address] [place] [address], [facility] * Vitamin B12 (12/26/2024 7:26 AM CDT) Vitamin B12 850 232 - 1,245 pg/mL 12/26/2024 9:01 AM CDT UU LABORATORY Blood BLOOD SPECIMEN / Unknown Venipuncture / Unknown 12/26/2024 7:26 AM CDT 12/26/2024 7:36 AM CDT us Deborah Sung SENIOR PROPERTY ACCOUNTANT COLORIST PHOTOGRAPHY LAB - BLOOD ORDERABLE S Final Result UU LABORATORY [facility] Lab [address] [facility], [address] [place] [address] * (ABNORMAL) Basic metabolic panel (12/25/2024 5:27 PM CDT) Sodium 135 135 - 145 mmol/L 12/25/2024 6:35 PM CDT UR LABORATORY Potassium 5.8(H) 3.4 - 5.3 mmol/L 12/25/2024 6:35 PM CDT UR LABORATORY Comment:Specimen moderately hemolyzed. The reported potassium value *IS LIKELY TO BE FALSELY ELEVATED* and should be interpreted with caution for clinical decision making. Analysis of a non-hemolyzed specimen (i.e. re-draw) may result in a lower potassium value. Chloride 101 98 - 107 mmol/L 12/25/2024 6:35 PM CDT UR LABORATORY Carbon Dioxide (CO2) 22 22 - 29 mmol/L 12/25/2024 6:35 PM CDT UR LABORATORY Anion Gap 12 7 - 15 mmol/L 12/25/2024 6:35 PM CDT UR LABORATORY Urea Nitrogen 11.2 6.0 - 20.0 mg/dL 12/25/2024 6:35 PM CDT UR LABORATORY Creatinine 0.62(L) 0.67 - 1.17 mg/dL 12/25/2024 6:35 PM CDT UR LABORATORY GFR Estimate >90 >60 mL/min/1.7 3m2 12/25/2024 6:35 PM CDT UR LABORATORY Comment:eGFR calculated 2020 CKD-EPI equation. Calcium 8.1(L) 8.8 - 10.4 mg/dL 12/25/2024 6:35 PM CDT UR LABORATORY Glucose 241(H) 70 - 99 mg/dL 12/25/2024 6:35 PM CDT UR LABORATORY Blood BLOOD SPECIMEN / Unknown Venipuncture / Unknown 12/25/2024 5:27 PM CDT 12/25/2024 5:41 PM CDT us Emily Zimmer MD LAB - BLOOD ORDERABLES Fin al Result UR LABORATORY [facility] [address] [facility], [address] [place] [address] * (ABNORMAL) Urine Drug Screen Panel (12/25/2024 5:10 PM CDT) [facility] Amphetamines Urine Screen Negative Screen Negative 12/25/2024 6:57 PM CDT UR LABORATORY Comment:Cutoff for a negativ e amphetamine is less than 500 ng/mL. Barbituates Urine Screen Negative Screen Negative 12/25/2024 6:57 PM CDT UR LABORATORY Comment:Cutoff for a negativ e barbiturate is less than 200 ng/mL. Benzodiazepine Urine Screen Negative Screen Negative 12/25/2024 6:57 PM CDT UR LABORATORY Comment:Cutoff for a negativ e benzodiazepine is less than 100 ng/mL. Cannabinoids Urine Screen Positive(A) Screen Negative 12/25/2024 6:57 PM CDT UR LABORATORY Comment: Cutoff for a positive cannabinoid is 50 ng/mL or greater. This is an unconfirmed screening result to be used for medical purposes only. Cocaine Urine Screen Positive(A) Screen Negative 12/25/2024 6:57 PM CDT UR LABORATORY Comment: Cutoff for a positive cocaine is 300 ng/mL or greater. This is an unconfirmed screening result to be used for medical purposes only. Fentanyl Qual Urine Screen Negative Screen Negative 12/25/2024 6:57 PM CDT UR LABORATORY Comment:Cutoff for negative fentanyl is less than 5 ng/mL. Opiates Urine Screen Negative Screen Negative 12/25/2024 6:57 PM CDT UR LABORATORY Comment:Cutoff for a negativ e opiate is less than 300 ng/mL. PCP Urine Screen Negative Screen Negative 12/25/2024 6:57 PM CDT UR LABORATORY Comment:Cutoff for a negativ e PCP is less than 25 ng/mL. Urine URINE SPECIMEN / Unknown Non-blood Collection / Unknown 12/25/2024 5:10 PM CDT 12/25/2024 5:48 PM CDT us Emily Zimmer MD LAB - URINE ORDERABLES Fin al Result UR LABORATORY [facility] [address] [facility], [address] [place] [address] * (ABNORMAL) Blood gas venous (12/25/2024 3:42 PM CDT) pH Venous 7.42 7.32 - 7.43 12/25/2024 3:48 PM CDT UR LABORATORY pCO2 Venous 40 40 - 50 mm Hg 12/25/2024 3:48 PM CDT UR LABORATORY pO2 Venous 62(H) 25 - 47 mm Hg 12/25/2024 3:48 PM CDT UR LABORATORY Bicarbonate Venous 26 21 - 28 mmol/L 12/25/2024 3:48 PM CDT UR LABORATORY Base Excess/Deficit Venous 1.2 -3.0 - 3.0 mmol/L 12/25/2024 3:48 PM CDT UR LABORATORY FIO2 98 JESSICA 12/25/2024 3:48 PM CDT UR LABORATORY Oxyhemoglobin Venous 90(H) 70 - 75 % 12/25/2024 3:48 PM CDT UR LABORATORY O2 Sat, Venous 92.7(H) 70.0 - 75.0 % 12/25/2024 3:48 PM CDT UR LABORATORY Blood, venous VENOUS LINE / Unknown Venipuncture / Unknown 12/25/2024 3:42 PM CDT 12/25/2024 3:47 PM CDT Narrative UR LABORATORY - 12/25/2024 3:48 PM CDT In healthy individuals, oxyhemoglobin (O2Hb) and oxygen saturation (SO2) are approximately equal. In the presence of dyshemoglobins, oxyhemoglobin can be considerably lower than oxygen saturation. us Emily Zimmer MD LAB - BLOOD ORDERABLES Fin al Result Performing Organization Address City/[facility]/ZIP Co de Phone Number UR LABORATORY [facility], [address] [place] [address], [facility] * (ABNORMAL) CBC with platelets and differential (12/25/2024 3:25 PM CDT) WBC Count 6.7 4.0 - 11.0 10e3/uL 12/25/2024 4:10 PM CDT UR LABORATORY RBC Count 4.79 4.40 - 5.90 10e6/uL 12/25/2024 4:10 PM CDT UR LABORATORY Hemoglobin 16.2 13.3 - 17.7 g/dL 12/25/2024 4:10 PM CDT UR LABORATORY Hematocrit 44.6 40.0 - 53.0 % 12/25/2024 4:10 PM CDT UR LABORATORY MCV 93 78 - 100 fL 12/25/2024 4:10 PM CDT UR LABORATORY MCH 33.8(H) 26.5 - 33.0 pg 12/25/2024 4:10 PM CDT UR LABORATORY MCHC 36.3 31.5 - 36.5 g/dL 12/25/2024 4:10 PM CDT UR LABORATORY RDW 11.0 10.0 - 15.0 % 12/25/2024 4:10 PM CDT UR LABORATORY Platelet Count 204 150 - 450 10e3/uL 12/25/2024 4:10 PM CDT UR LABORATORY % Neutrophils 60 % 12/25/2024 4:10 PM CDT UR LABORATORY % Lymphocytes 31 % 12/25/2024 4:10 PM CDT UR LABORATORY % Monocytes 6 % 12/25/2024 4:10 PM CDT UR LABORATORY % Eosinophils 2 % 12/25/2024 4:10 PM CDT UR LABORATORY % Basophils 1 % 12/25/2024 4:10 PM CDT UR LABORATORY % Immature Granulocytes 0 % 12/25/2024 4:10 PM CDT UR LABORATORY NRBCs per 100 WBC 0 <1 /100 025 4:10 PM CDT UR LABORATORY Absolute Neutrophils 4.0 1.6 - 8.3 10e3/uL 12/25/2024 4:10 PM CDT UR LABORATORY Absolute Lymphocytes 2.0 0.8 - 5.3 10e3/uL 12/25/2024 4:10 PM CDT UR LABORATORY Absolute Monocytes 0.4 0.0 - 1.3 10e3/uL 12/25/2024 4:10 PM CDT UR LABORATORY Absolute Eosinophils 0.1 0.0 - 0.7 10e3/uL 12/25/2024 4:10 PM CDT UR LABORATORY Absolute Basophils 0.1 0.0 - 0.2 10e3/uL 12/25/2024 4:10 PM CDT UR LABORATORY Absolute Immature Granulocytes 0.0 <=0.4 10e3/uL 12/25/2024 4:10 PM CDT UR LABORATORY Absolute NRBCs 0.0 10e3/uL 12/25/2024 4:10 PM CDT UR LABORATORY Blood BLOOD SPECIMEN / Unknown Venipuncture / Unknown 12/25/2024 3:25 PM CDT 12/25/2024 3:34 PM CDT Emily Zimmer MD LAB - BLOOD ORDERABLES Fin al Result Performing Organization Address [facility] de Phone Number UR LABORATORY [facility] [address] [place] [address], Room [place] [phone] * (ABNORMAL) Osmolality (12/25/2024 3:25 PM CDT) Osmolality Blood 309(H) 275 - 295 mmol/kg 12/25/2024 4:18 PM CDT UR LABORATORY Blood BLOOD SPECIMEN / Unknown Venipuncture / Unknown 12/25/2024 3:25 PM CDT 12/25/2024 3:34 PM CDT Narrative UR LABORATORY - 12/25/2024 4:18 PM CDT Greater than 385 mmol/kg relates to stupor in hyperglycemia Greater than 400 mmol/kg can relate to seizures Greater than 420 mmol/kg can be lethal Serum Osmalar Gap: Normal <10 Larger suggest unmeasured substances present in serum (ethanol, methanol, isopropanol, mannitol, ethylene glycol). Emily Zimmer MD LAB - BLOOD ORDERABLES Fin al Result Performing Organization Address [facility] Center/[facility] Co de Phone Number UR LABORATORY [facility] [address] [place] [address], Room [address] [place] [address] * Magnesium (12/25/2024 3:25 PM CDT) Magnesium 2.1 1.7 - 2.3 mg/dL 12/25/2024 5:16 PM CDT UR LABORATORY Blood BLOOD SPECIMEN / Unknown Venipuncture / Unknown 12/25/2024 3:25 PM CDT 12/25/2024 3:34 PM CDT Emily Zimmer MD LAB - BLOOD ORDERABLES Fin al Result UR LABORATORY [facility] [address] [place] [address], Room [address] * (ABNORMAL) Ketone Beta-Hydroxybutyrate Quantitative (12/25/2024 3:25 PM CDT) Ketone (Beta-Hydroxybut yrate) Quantitative 1.69(HH) <=0.30 mmol/L 12/25/2024 4:40 PM CDT UR LABORATORY Blood BLOOD SPECIMEN / Unknown Venipuncture / Unknown 12/25/2024 3:25 PM CDT 12/25/2024 3:34 PM CDT Emily Zimmer MD LAB - BLOOD ORDERABLES Fin al Result UR LABORATORY [facility] [address] [place] [address], Room [address] * Ethanol Level Blood (12/25/2024 3:25 PM CDT) Ethanol Level Blood <0.01 <=0.01 g/dL 12/25/2024 4:32 PM CDT UR LABORATORY Blood BLOOD SPECIMEN / Unknown Venipuncture / Unknown 12/25/2024 3:25 PM CDT 12/25/2024 3:34 PM CDT Emily Zimmer MD LAB - BLOOD ORDERABLES Fin al Result Performing Organization Address City/[facility]/ZIP Co de Phone Number UR LABORATORY [facility] [address] [facility], Room [address] [id number] * Alcohol breath test POCT (12/25/2024 2:25 PM CDT) Only the most recent of2 resultswithin the time period is included. Alcohol Breath Test 0.00 0.00 - 0.01 UR LABORATORY POC Breath us Emily Zimmer MD LAB - ENTER/EDIT POCT Linda l Result Performing Organization Address [facility] Co de Phone Number UR LABORATORY POC [facility] [address] [facility], Room [place] [id number] * (ABNORMAL) Abstract Microalbumin (12/27/2019) Albumin (Urine) MG/SPEC 24.5(H) <=20.0 mg/L [facility] Creatinine (Urine) 37.6 mg/dL [facility] Albumin/Creatin ine Ratio 65(H) <=30 mg/g [facility] 12/27/2019 Narrative [facility] - 12/27/2019 Care Everywhere, [facility] us Provider Outside LAB - HIM EXTERNAL RESULT Final Result Performing Organization Address [facility] Co de Phone Number [facility] [address] [place] [address], [facility] [phone] from Last 3 Months or Most Recently Relevant to Health Maintenance Insurance [employer] [facility] [place] Advance Direct[place] For more information, please contact: [phone] * Full Code (Latest Code Status on File) Date Activated Date Inactivated Comments 12/27/2024 10:37 AM 12/27/2024 2:16 PM All basic a nd advanced life-sustaining interventions are performed as appropriate Question Answer Comments Code status determined by: Discussion with patie nt/ legal decision maker * Full Code Date Activated Date Inactivated Comments 12/25/2024 10:31 PM 12/27/2024 10:37 AM All basic and advanced life-sustaining interventions are performed as appropriate Question Answer Comments Code status determined by: Unable to det ermine; FULL CODE until documents or legal decision maker available * Full Code Date Activated Date Inactivated Comments 03/12/2020 10:21 AM 03/23/2020 7:58 PM Question Answer Comments Code status determined by: Discussion with patie nt/ legal decision maker * Full Code Date Activated Date Inactivated Comments 03/09/2020 4:57 PM 03/12/2020 10:21 AM All basic an d advanced life-sustaining interventions are performed as appropriate Question Answer Comments Code status determined by: Discussion with patie nt/ legal decision maker Care Teams Medicare Compliance Auditor Relationship Specialty Start Date End Date No Ref-Primary, Physician PCP - General 02/21/24 Angella Rodrígeuz APRN [facility] [place] [address] Assigned PCP 03/25/24 Carly Chavira MD [address] [place] [address] [address] [place] [address] Endocrinology, Diabetes, and Metabolism 01/14/25
--- OUTSIDE RECORDS SUMMARY | 2025-03-26 01:11 | XMS_ITS | Clinical Summary ---
Author Organization [facility] Address [facility] [place] [address] Care Team Providers Care Blue Split Trimmer Name Role Phone Pcp, No Primary Care Provider Unavailabl e Allergies No known active allergies Medications polyethylene glycol 3350 4 gram pwpk Mix in liquid then take by mouth. Active trazodone HCl (TRAZODONE ORAL) Take 50 mg by mouth 3 times daily if needed. Active blood-glucose meterIndications :Type 2 diabetes mellitus with hyperglycemia, unspecified whether terminal computer operator insulin use (HC) Dispense meter covered by pts insurance. 1 Each 4 Active lancetsIndicatio ns:Type 2 diabetes mellitus with hyperglycemia, unspecified whether care home insulin use (HC) As directed. Test 1-2 times per day. 100 Each 12 4 Active blood sugar diagnostic (Blood Glucose Test) stripIndications :Type 2 diabetes mellitus with hyperglycemia, unspecified whether terminal computer operator insulin use (HC) Test 1-2 times per day. 100 Each 12 4 Active [id number]- Fish Oil (Fish OiL) 1,000 mg (120 mg-180 mg) cap Take by mouth. Active metFORMIN (GLUCOPHAGE XR) 500 mg Extended-Release tabletIndication s:Type 2 diabetes mellitus with hyperglycemia, with long-term current use of insulin (HC) Take 2 Tablets (1,000 mg) by mouth once daily. 180 Tablet 3 4 Active atorvastatin (LIPITOR) 10 mg tabletIndication s:Type 2 diabetes mellitus with hyperglycemia, with long-term current use of insulin (HC) Take 1 Tablet (10 mg) by mouth at bedtime. 90 Tablet 4 Active Active Problems Problem Noted Date Diagnosed Date Type 2 diabetes mellitus 11/15/2023 Resolved Problems Problem Noted Date Diagnosed Date Resolved Date DKA (diabetic ketoacidosis) 03/09/2020 11/15/2023 Overview (11/15/2023): Replacing diagnoses that were inactivated after the 04/02/2021 regulatory import. Immunizations Immunization Administration Dates Next Due COVID-19 vaccine (BioCee 30mcg/0.3mL) P F, MDV 02/21/2021,01/30/2021 DTaP 09/08/2010,03/29/1995 Dtap Unspecified Formulation 09/08/2010 Hepatitis B, Unspecified 09/08/2006,02/27/2004 Hib Conjugate, Unspecified 03/29/1995 MMR 02/27/2004,03/29/1995 Polio Virus, Unspecified 03/29/1995 Td, Preservative Free (age >= 7 Years) 4 Tdap 09/08/2010 Family History Medical History Relation Name Comments Good Health Brother 4 Good Health Brother 5 Good Health Brother 6 Good Health Father Diabetes Mother Relation Name Status Comments Brother 1 Alive Brother 2 Alive Brother 3 Alive Brother 4 Brother 5 Brother 6 Father Alive Mother Alive Social History Tobacco Use Types Packs/Day Years Used Date Smoking Tobacco: Former Cigarettes Q uit: 03/22/2009 Smokeless Tobacco: Never Tobacco Cessation:Counseling Given: Not Answered Alcohol Use Standard Drinks/Week Comments Not Currently 0 (1 standard drink = 0.6 oz pur e alcohol) admits to etoh today PHQ-2 Answer Date Recorded PHQ-2 TOTAL SCORE 3 11/15/2023 Social Connections Answer Date Recorded Do you often feel lonely or isolated from those around you? 0 11/15/2023 Financial Resource Strain Answer Date R ecorded Difficulty of Paying Living Expenses 3 11/15/2023 Difficulty of Paying Living Expenses Not on file 11/15/2023 Food Insecurity Answer Date Recorded Do you worry your food will run out before you are able to buy more? 1 11/15/2023 Transportation Needs Answer Date Record ed Does lack of transportation keep you from medica l appointments? 1 11/15/2023 Does lack of transportation keep you from work, meetings or getting things that you need? 1 11/15/2023 Housing Stability Answer Date Recorded What is your housing situation today? 1 11/15/2023 Utilities Answer Date Recorded Do you have trouble paying f or utilities (for example, heat, electricity, water, phone)? 1 11/15/2023 Sex and Gender Information Value Date Recorded Sex Assigned at Not on file Legal Sex Male 5:26 AM NANOTECHNOLOGY ENGINEERING TECHNOLOGIST Gender Identity Not on file Sexual Orientation Not on file Obstetrics History Last Filed Vital Signs Vital Sign Reading Time Taken Comments Blood Pressure 130/61 12/18/2023 1:26 PM CDT Pulse 72 12/18/2023 1:26 PM CDT Temperature 36.4 C (97.5 F) 07/25/2010 6:21 PM NANOTECHNOLOGY ENGINEERING TECHNOLOGIST Respiratory Rate 18 07/25/2010 6:21 PM NANOTECHNOLOGY ENGINEERING TECHNOLOGIST Oxygen Saturation 100% 07/25/2010 7:55 PM NANOTECHNOLOGY ENGINEERING TECHNOLOGIST Inhaled Oxygen Concentration - - Weight 113.4 kg (250 lb 1.6 oz) 12/18/2023 1:26 PM CDT Height 180.3 cm (5' 11) 11/15/2023 11: 04 AM CDT Body Mass Index 34.88 11/15/2023 11:04 AM CDT Plan of Treatment Health Maintenance Due Date Last Done Comments Hepatitis B series for 19+ ( 3 of 3 - 3-dose series) 11/03/2006 09/08/2006, 02/27/2004 Pneumococcal series for age 6-49 (1 of 2 - PCV) 2010 HPV series for age 9-45 (1 - 3-dose SCDM series) 2018 Tetanus booster 09/08/2020 09/08/2010, 02/27/2004 BMI (ht and wt on same day) for age 18+ 11/14/2024 0 11/15/2023 Depression screening for age 12+ 11/14/2024 11/15/19 24 COVID-19 vaccine series ( - season) 2025 02/21/2021, 01/30/2021 Influenza Vaccine (#1) 2025 RSV vaccine for adults or pr egnancy (1 - 1-dose 75+ series) 2066 HIV for age 15-65 Completed 11/15/2023 Hepatitis C screening for age 18-79 Completed 11/14 Procedures Procedure Name Priority Date/Time Associated Diagnosis Comments ANTI HIV 1/2 Routine 11/15/2023 11:33 AM CDT Routine screening for STI (sexually transmitted infection) ANTI HCV Routine 11/15/2023 11:33 AM CDT Screening examination for infectious disease from Last 3 Months or Most Recently Relevant to Health Maintenance Results * ANTI HCV (11/15/2023 11:33 AM CDT) HEPATITIS C ANTIBODY Non-Reacti ve Non-React dayana 11/16/2023 3:51 AM CDT [facility] Comment:Please note, per www .CDC.gov: If a patient is known to be at high risk of HCV infection, or is symptomatic, and the physician's suspicion of HCV infection is high, HCV RNA testing is often employed and is of diagnostic value, even after an initial negative anti-HCV test result. Blood BLOOD SPECIMEN / Unknown Venipuncture / Unknown 11/15/2023 11:33 AM CDT 11/15/2023 12:33 PM CDT us Camilo Brasher MD SEND OUTS Final R esult [facility] [address] [place] [address], * ANTI HIV 1/2 (11/15/2023 11:33 AM CDT) HIV-1/HIV-2 SCREEN Non-Reacti ve Non-Reacti ve 11/16/2023 12:29 AM CDT [facility] Comment:HIV-1 p24 and HIV-1/ HIV-2 Ab Not Detected. Blood BLOOD SPECIMEN / Unknown Venipuncture / Unknown 11/15/2023 11:33 AM CDT 11/15/2023 12:33 PM CDT us Camilo Brasher MD SEND OUTS Final R esult [facility] [address] [place] [address], [place] from Last 3 Months or Most Recently Relevant to Health Maintenance Insurance [facility] [address] [place] [id number] Care Teams Blue Split Trimmer Relationship Specialty Start Date End Date Pcp, No . PCP - General 01/17/24
--- NOTE | 2025-03-26 01:12 | ED.GENADULT ---
HPI - General Adult General Time Seen by Provider: 01:22 Date Seen: 03/26/25 Chief complaint: Flank Pain Stated complaint: bladder/kidney pain Time Seen by Provider: 03/26/25 01:11 Source: patient Mode of arrival: ambulatory History of Present Illness HPI narrative: Rocky is a 35-year-old male who presents to the emergency department for evaluation of lower urinary symptoms. Patient complains of lower urinary symptoms and urinary tract infections that have been ongoing and intermittent over the past few months. Patient states that it initially started off a few months ago when he noted hematuria. Patient reports at that time he was diagnosed with a bladder infection was started on antibiotics. Patient states that he took maybe 2-3 days of the antibiotics however then stopped taking them because he was feeling better. Patient reports that 1-2 weeks later he had recurrent symptoms 0 finish taking his initial course of antibiotics. Patient reports that since this time he has had intermittent suprapubic discomfort. Patient states he last was on some antibiotics approximately 2 and half weeks ago. Unknown which antibiotics he was on. Patient states that he just took leftover antibiotics. Patient denies any fever, chills, chest pain, shortness of breath, cough or cold-like symptoms. Denies any penile drainage/discharge. Patient currently denies any back pain, flank pain, abdominal pain, dysuria, hematuria, testicular pain, swelling. Patient reports some intermittent suprapubic pain but currently is pain-free. No medications prior to arrival, no other complaints. Related Data Home Medications ?Medication ?Instructions ?Recorded ?Confirmed blood sugar diagnostic (Accu-Chek 03/26/25 03/26/25 Guide test strips) blood-glucose sensor (FreeStyle 03/26/25 03/26/25 Rabia 3 Plus Sensor device) insulin glargine 100 unit/mL (3 45 unit subcut DAILY 03/26/25 03/26/25 mL) subcutaneous pen (Lantus Solostar U-100 Insulin) sertraline 50 mg tablet 50 mg PO DAILY 03/26/25 03/26/25 Allergies Allergy/AdvReac Type Severity Reaction Status Date / Time No Known Drug Allergies Allergy Verified 03/26/25 01:19 Review of Systems Narrative: Past medical history, past surgical history, medications, allergies, family history, and social history were reviewed with the patient. No additional pertinent items. A medically appropriate review of systems was performed with pertinent positives and negatives noted in HPI, all other systems negative. [facility] Medical History (Updated 03/26/25 @ 01:54 by Re Duron MD) Type 2 diabetes mellitus ?E11.9 - Type 2 diabetes mellitus without complications (ICD-10) Social History Smoking Status: Former smoker How often do you have a drink containing alcohol: never AUDIT-C Alcohol total score: 0 Non-prescribed substance use: denies use Exam Narrative: Exam Narrative: General: Afebrile, no acute distress HEENT: Normocephalic, atraumatic, conjunctiva normal. MMM Neck: non-tender, supple Cardio: regular rate. regular rhythm Resp: Normal work of breathing, no respiratory distress, lungs clear bilaterally, no wheezing, rhonchi, rales Chest/Back: no visual signs of trauma, no midline tenderness, no CVA tenderness Abdomen: soft, non distension, no tenderness, no peritoneal signs Neuro: alert and fully oriented. CN II-XII grossly intact. Grossly normal strength and sensation in all extremities. MSK: no deformities. Normal range of motion Integumentary/Skin: no rash visualized, normal color Psych: normal affect, normal behavior Const: Vital Signs, click to edit/add: Vital Signs - 24 hr 03/26/25 01:17 Temperature 98.0 F Pulse Rate [Right Pulse Oximeter] 99 Respiratory Rate 18 Blood Pressure [Ri ght Upper Arm] 132/80 Pulse Oximetry 99 Oxygen Delivery Me thod Room Air Course Vital Signs Vital signs: Initial Vital Signs Temperature 98.0 F 03/26/25 01:17 Temperature Source Temporal Artery Scan 03/26/25 01:17 Pulse Rate 99 03/26/25 01:17 Respiratory Rate 18 03/26/25 01:17 Blood Pressure 132/80 03/26/25 01:17 Blood Pressure Mean 97 03/26/25 01:17 Blood Pressure Position Sitting 03/26/25 01:17 Pulse Oximetry 99 03/26/25 01:17 Oxygen Delivery Method Room Air 03/26/25 01:17 Vital Signs Temperature 98.0 F 03/26/25 01:17 Pulse Rate 99 03/26/25 01:17 Respiratory Rate 18 03/26/25 01:17 Blood Pressure 132/80 03/26/25 01:17 Pulse Oximetry 99 03/26/25 01:17 Oxygen Delivery Method Room Air 03/26/25 01:17 Temperature 98.0 F 03/26/25 01:17 Pulse Rate 99 03/26/25 01:17 Respiratory Rate 18 03/26/25 01:17 Blood Pressure 132/80 03/26/25 01:17 Pulse Oximetry 99 03/26/25 01:17 Oxygen Delivery Method Room Air 03/26/25 01:17 Medical Decision Making MDM Narrative Medical decision making narrative: Rocky is a 35-year-old male who presents to the emergency department for evaluation of lower urinary symptoms. Upon arrival patient is nontoxic appearing, afebrile, no distress. Patient hemodynamically stable vital signs within normal limits. Differential diagnosis includes but is not limited to cystitis versus pyelonephritis versus nephrolithiasis versus dehydration among others. Patient currently asymptomatic. I reviewed urinalysis which demonstrates glucose in the urine. Patient states he does have diabetes initial agrees have been elevated recently. No evidence of acute infection, this time no emergent indication for antibiotics is urinalysis is not suggestive the infection in patient currently is nontoxic appearing and denies any symptoms. I discussed results with patient. Recommend oral hydration with water, making sure he stays hydrated, good blood glucose control, as well as close outpatient follow-up with his primary care provider in Urology if ongoing symptoms. Strict return precautions discussed. Patient understands and agrees to plan. Medical Records Medical records reviewed: Yes I reviewed the patient's medical records Lab Data Lab results reviewed: Yes I reviewed the patient's lab results Labs: Lab Results 03/26/25 Range/Units 01:19 Urine Color Yellow (Yellow) Urine Appearance Clear (Clear) Urine pH 5.5 (5.0-8.5) Ur Specific [place] 1.010 (1.000-1.030) Urine Protein Negative (Negative) Urine Glucose (UA) 3+ A (Negative) Urine Ketones Negative (Negative) Urine Blood Negative (Negative) Urine Nitrite Negative (Negative) Urine Bilirubin Negative (Negative) Urine Urobilinogen 0.2 (0.2-1.0) Ur Leukocyte Esterase Negative (Negative) Urine RBC 0-2 (0-2) Urine WBC 0-2 (0-5) Ur Squamous Epith Cells Few (None-Few) Urine Bacteria Few A (None) Discharge Plan Discharge Clinical Impression: Lower urinary tract symptoms Patient Disposition: Home, Self-Care Condition: Stable Additional Instructions: Please follow-up with your primary care provider in the next 5-7 days if ongoing symptoms. Please call to schedule appointment. If you continue to experience lower urinary symptoms you may need to follow-up with her urologist for further evaluation and testing. Please make sure you are drinking plenty of water to stay hydrated. Please return to the emergency department if you develop persistent high fever, severe pain, blood in urine, worsening symptoms. It is a pleasure taking care of you today. We hope you feel better soon. Prescriptions: No Action (DME) Accu-Chek Guide test strips Strip MISCELLANEOUS (DME) FreeStyle Rabia 3 Plus Sensor Device 1 ea MISCELLANEOUS sertraline 50 mg tablet 50 mg PO DAILY insulin glargine [Lantus Solostar U-100 Insulin] 100 unit/mL (3 mL) insulin pen 45 unit subcut DAILY Follow Up/Referrals: Provider,Not a Local [Primary Care Provider, Family Practice] Stand Alone Forms: flux - neutrinity Info Instructions
[2025-03-26 01:17] VITALS: BP 132/80; PULSE 99; RESP 18; TEMP 36.7; O2SAT 99; BMI 25.8
[2025-03-26 01:28] LABS: Appearance Urine Clear (Clear)
[2025-03-26 02:05] VITALS: BP 129/81; PULSE 89; RESP 18; TEMP 36.9; O2SAT 99
== END 2025-03-26 02:06 | disposition home or self-care (01) ==
PROVIDERS: Emergency Provider Emergency Medicine
DX: R39.89 Other symptoms and signs involving the genitourinary system (principal)
CPT/HCPCS: 81001; 87086; 99282; 99283

== ENCOUNTER 2025-04-16 10:46 | Outpatient (CLI) | payer BC, SELFPAY | END 2025-04-16 10:47 | disposition home or self-care (01) | PROVIDERS: PCP Family Medicine; Visit Provider Family Medicine | DX: E11.9 Type 2 diabetes mellitus without complications (principal) | CPT/HCPCS: 80053 ==